=== PATIENT | male | born 1945 | race Caucasian/White ===

== ENCOUNTER 2017-02-25 19:02 | Inpatient (IN) ==
[2017-02-25] MEDS ORDERED: ALBUTEROL/IPRATROPIUM 3 ML NEB RESP TX STA (19:26)
[2017-02-25] MEDS ORDERED: methylPREDNISolone SOD SUC 125 MG/2 ML VIAL IV STA (19:26)
[2017-02-25] MEDS ORDERED: FUROSEMIDE 100 MG/10 ML VIAL IV STA (19:26)
--- NOTE | 2017-02-25 19:31 | Emergency Department Note ---
Arrival - Arrival Chief Complaint: Shortness of Breath Stated Complaint: chf, sob, O2 sats low 80's ED Nursing Triage Note: C/O Shortness of breath. Onset 1300 today. Pt reports that he has swelling to exts. Pt reports that the SOB is worse when laying down or with exertion. Pt is here visiting Mode of Arrival: Wheelchair Limitations: No Limitations Source: Patient, Family Time Seen by Provider: 02/25/17 19:25 - History of Present Illness HPI Narrative: This 71-year-old white male with a history of congestive heart failure, atrial fibrillation, and COPD presents with several days of progressive dyspnea on exertion and orthopnea associated with wheezing and increased rapid heartbeat. The patient had a significant increase in shortness of breath today with a marked increase in pedal edema in the last 24 hours. He denies any chest pain, nausea, vomiting, cough, chills, fever, or purulence. He is followed where he lives in [place] at [facility] for his cardiology problems. He states he is scheduled for a procedure for his atrial fib although he is in sinus now and is compliant with his sotalol and Coreg. He likewise states he has been taking his Lasix as advised. Currently he is uncomfortable but medically stable. Onset (ago): day(s) (Patient presents with several days of increased symptoms) Allergies/Adverse Reactions: Allergies Allergy/AdvReac Type Severity Reaction Status Date / Time acetaminophen [From Tylox] Allergy Intermediate ITCHING Verified 02/25/17 19:14 indomethacin [From Indocin] Allergy Intermediate ITCHING Verified 02/25/17 19:14 ketorolac [From Toradol] Allergy Intermediate ITCHING Verified 02/25/17 19:14 Oxycodone [From Tylox] Allergy Intermediate ITCHING Verified 02/25/17 19:14 Home Medications: Home Medications Medication Instructions Recorded Confirmed Type Aspirin [Ecotrin] 81 mg PO DAILY 02/25/17 02/25/17 History Atorvastatin Calcium 40 mg PO BEDTIME 02/25/17 02/25/17 History Carvedilol 25 mg PO BID 02/25/17 02/25/17 History Clopidogrel Bisulfate [Clopidogrel] 75 mg PO DAILY 02/25/17 02/25/17 History Diazepam Tab [Valium Tab] 5 mg PO DAILY PRN 02/25/17 02/25/17 History Diltiazem Tab [Cardizem Tab] 60 mg PO DAILY PRN 02/25/17 02/25/17 History Furosemide Tab [Lasix Tab] 40 mg PO DAILY PRN 02/25/17 02/25/17 History Lisinopril 10 mg PO DAILY 02/25/17 02/25/17 History Magnesium Oxide 400 mg PO DAILY 02/25/17 02/25/17 History Nitroglycerin [Nitromist] 1 spray TRANSLING Q5M PRN 02/25/17 02/25/17 History Omeprazole 40 mg PO DAILY 02/25/17 02/25/17 History Potassium Chloride [Klor-Con M10] 10 meq PO DAILY 02/25/17 02/25/17 History Rivaroxaban [Xarelto] 20 mg PO DAILY 02/25/17 02/25/17 History Sotalol HCl [Sotalol AF] 120 mg PO BID 02/25/17 02/25/17 History Review of System - Review of System 12 point system: reviewed and no additional remarkable complaints except as stated - Review of System Constitutional: Present: as per HPI Respiratory: Present: as per HPI Cardiovascular: Present: as per HPI Gastrointestinal: Present: as per HPI Medical,Surgical,& Family Hx - Medical History Cardio: History of: Cardiac Dysrhythmia (AFib), CHF - Social History Smoking Status: Current every day smoker Frequency of Alcohol Use: None Type of Drug Use: None Exam Physical Examination: GENERAL: Chronically ill-appearing pale white male in no acute distress. HEENT: Normocephalic. No trauma. Moist mucous membranes. EOMI. PERRLA. ENT NML NECK: Supple. No adenopathy. No JVD CARDIAC: Regular. No murmurs. Heart rate 120 CHEST: Bibasilar inspiratory rales, scattered expiratory anterior wheezes. No respiratory distress. O2 sat 95% ABDOMEN: Soft. Nontender. Active bowel sounds. Abdomen benign EXTREMITIES: No trauma. Normal ROM. 2+ pedal edema. SKIN: No diaphoresis. No rash. NEURO: Alert. Neuro intact no focal deficits. Vital Signs: Vital Signs Temperature 98.4 F 02/25/17 19:14 Pulse Rate 125 H 02/25/17 20:02 Respiratory Rate 22 02/25/17 20:02 Blood Pressure 113/78 02/25/17 19:14 O2 Sat by Pulse Oximetry 100 02/25/17 20:02 Course - Reevaluation(s) Reevaluation #1: Discussed with family the need for hospitalization for cardiac decompensation and intermittent atrial fib - Consultations Consultation #1: Discussed with hospitalist service who will admit for further evaluation treatment. Results - Labs CBC & BMP: 02/25/17 19:42 02/25/17 19:42 Labs: I have reviewed the laboratory and noted the greatly elevated BMP as well as early azotemia. - Impressions EKG: Sinus tachycardia with normal DE interval and QRS duration with nonspecific ST changes laterally. No acute injury pattern noted. - Diagnostic Findings Procedure: Chest x-ray: image reviewed by me, report reviewed by me (Interval increase in cardiac silhouette, evidence of median sternotomy, no acute changes) Disposition Clinical Impression: Congestive heart failure, Atrial fibrillation Case discussed with: patient, patient's family Disposition: Still a Patient Condition: Guarded Time of Disposition: 20:45
[2017-02-25] MEDS ORDERED: methylPREDNISolone SOD SUC 125 MG/2 ML VIAL ONE (19:52)
[2017-02-25] MEDS ORDERED: FUROSEMIDE 100 MG/10 ML VIAL ONE (19:52)
[2017-02-25 19:59] LABS: Basophils # 0.1 10*3/uL (0.0-0.2); Basophils % 0.6 % (0.0-0.8); Eosinophils # 0.1 10*3/uL (0.0-0.87); Eosinophils % 0.8 % (0.00-10.9); Hematocrit 39.6 VOL% (42.0-52.0); Immature Granulocytes % 0.4 %; Immature Granulocytes Absolute 0.05 #; Lymphocytes # 1.2 10*3/uL (1.4-4.0); Lymphocytes % 10.8 % (21.2-54.2); Mean Corpuscular HGB Conc 32.8 GM/DL (32-36); Mean Corpuscular Hemoglobin 29 PG (27-34); Mean Platelet Volume 12.2 FL (9.6-12.0); Monocytes # 0.8 10*3/uL (0.11-0.8); Monocytes % 7.1 % (1.7-12.7); Neutrophils # 9.2 10*3/uL (1.4-7.4); Neutrophils % 80.3 % (38.7-73.9); Platelet Count 230 T/CUMM (130-400); Red Blood Count 4.55 MC/CUMM (3.8-5.5); Red Cell Distribution Width 16.9 % (9.3-17.3); White Blood Count 11.4 T/CUMM (4-12)
[2017-02-25 20:11] LABS: INR 1.4; PT Patient Result 15.3 SECS; Partial Thromboplastin Time 36.4 SECS (0-40)
[2017-02-25 20:11] LABS: Apearance,Urine CLEAR (Clear); Bacteria,Urine Occasional /HPF (Few); Bilirubin,Urine Negative (Negative); Blood, Urine Negative (Negative); Glucose,Urine (UA) Negative (Negative); Hyaline Casts,Urine 7 /LPF (0-3); Ketones,Urine Negative (Negative); Mucus,Urine Occasional /LPF (Occasional); Nitrite,Urine Negative (Negative); Protein,Urine 100 MG/DL; RBC,Urine 1 /HPF (0-4); Urine Color Yellow (Yellow); Urine Specific Gravity 1.023 (1.001-1.035); Urine Urobilinogen < 2.0 EU/DL (0.2-1.0); WBC,Urine 2 /HPF (0-6)
--- NOTE | 2017-02-25 20:11 | XRay Report ---
Portable chest. Indication: Shortness of breath. Comparison: March 01, 2011. The heart is enlarged. It was previously normal in size. Cardiac hardware is in satisfactory position. Post median sternotomy. Calcific plaque present within the aortic knob. The pulmonary vasculature is normal. No consolidation, pneumothorax, or pleural effusion. Hypoaeration of the lung bases. Impression: Interval increase in heart size. Basilar hypoaeration. PROCEDURE INTERPRETED AT [facility] DEPARTMENT OF RADIOLOGY Final Report Signed by: Dr. Brielle Barroso
[2017-02-25 20:18] LABS: Barbiturates Screen,Urine Negative (Negative); Benzodiazepines Screen,Urine Positive (Negative); Cannabinoid Screen,Urine Negative (Negative); Opiate Screen,Urine Negative (Negative); Phencyclidine Screen,Urine Negative (Negative)
[2017-02-25 20:35] LABS: Alanine Aminotransferase 31 U/L (16-61); Albumin 3.4 G/DL (3.4-5.0); Alkaline Phosphatase 89 U/L (45-117); Aspartate Amino Transferase 25 U/L (0-37); Blood Urea Nitrogen 27 MG/DL (7-18); Calcium 8.4 MG/DL (8.5-10.1); Glucose 99 MG/DL (74-106); Osmolality,Calculated 285.3 MOS/KG (273-304); Potassium 3.8 MMOL/L (3.5-5.1); Sodium 141 MMOL/L (136-145); Total Protein 6.2 G/DL (6.4-8.3); Troponin I Only 0.026 NG/ML (0.00-0.045)
[2017-02-25] MEDS ORDERED: NITROGLYCERIN TRANSLING PRN (20:51)
[2017-02-25] MEDS ORDERED: DIAZEPAM 5 MG TABLET PO PRN (20:51)
[2017-02-25] MEDS ORDERED: DILTIAZEM 60 MG TABLET PO PRN (20:51)
[2017-02-25] MEDS ORDERED: PROMETHAZINE 25 MG/1 ML VIAL IM PRN (20:54)
[2017-02-25] MEDS ORDERED: MAGNESIUM SULF RIDER 4 GM in PREMIX 1 EACH IV PRN (20:54)
[2017-02-25] MEDS ORDERED: MAGNESIUM SULF RIDER 2 GM in PREMIX 1 EACH IV PRN (20:54)
[2017-02-25] MEDS ORDERED: ONDANSETRON 4 MG/2 ML VIAL IV PRN (20:54)
[2017-02-25] MEDS ORDERED: BISACODYL 5 MG TABLET PO PRN (20:54)
[2017-02-25] MEDS ORDERED: POTASSIUM CHLORIDE 20 MEQ TABLET PO PRN (20:54)
--- NOTE | 2017-02-25 20:59 | Hospitalist History & Physical ---
Assessment and Plan - Time spent with patient Time spent discussing smoking cessation with patient: 3 to 10 minutes (1) Acute on chronic systolic CHF (congestive heart failure) Status: Acute Current Visit: Yes (2) Atrial fibrillation with RVR Status: Acute Current Visit: Yes (3) AICD (automatic cardioverter/defibrillator) present Status: Acute Current Visit: Yes (4) Hx of CABG Status: Acute Current Visit: Yes (5) CKD (chronic kidney disease) stage 3, GFR 30-59 ml/min Status: Acute Assessment and plan: Plan: Admit to telemetry, serial cardiac enzymes, adjust beta jazlyn/calcium channel jazlyn for rate control Continue remainder of CHF medical regimen IV diuresis, strict I's and O's, daily weights Current Visit: Yes History of Present Illness Chief complaint: sob worsening over 1 week History of present illness: Mr. Nelson is a 71 year old male who is followed by Dr. Kilgore in [facility] for chronic atrial fibrillation, chronic systolic CHF with reported last EF of 25%. He thinks he had an echo maybe 3 weeks ago. He has an AICD and is on chronic anticoagulation. He is here tonight with approximately 1 week of worsening shortness of breath and peripheral edema. He has had cough productive of white phlegm. His feet and ankles are significantly more swollen than usual. He denies fever, chest pain, nausea vomiting or diarrhea. He states he thinks he was started on diltiazem about 2 weeks ago and since then he has felt "sluggish." No other medication changes. He is in town visiting friends/family. Around 130 today he began feeling much weaker and more short of breath prompting him to come to the emergency room. His symptoms are now constant and worsening. Home Medications Medication Instructions Recorded Confirmed Type Aspirin [Ecotrin] 81 mg PO DAILY 02/25/17 02/25/17 History Atorvastatin Calcium 40 mg PO BEDTIME 02/25/17 02/25/17 History Carvedilol 25 mg PO BID 02/25/17 02/25/17 History Clopidogrel Bisulfate [Clopidogrel] 75 mg PO DAILY 02/25/17 02/25/17 History Diazepam Tab [Valium Tab] 5 mg PO DAILY PRN 02/25/17 02/25/17 History Diltiazem Tab [Cardizem Tab] 60 mg PO DAILY PRN 02/25/17 02/25/17 History Furosemide Tab [Lasix Tab] 40 mg PO DAILY PRN 02/25/17 02/25/17 History Lisinopril 10 mg PO DAILY 02/25/17 02/25/17 History Magnesium Oxide 400 mg PO DAILY 02/25/17 02/25/17 History Nitroglycerin [Nitromist] 1 spray TRANSLING Q5M PRN 02/25/17 02/25/17 History Omeprazole 40 mg PO DAILY 02/25/17 02/25/17 History Potassium Chloride [Klor-Con M10] 10 meq PO DAILY 02/25/17 02/25/17 History Rivaroxaban [Xarelto] 20 mg PO DAILY 02/25/17 02/25/17 History Sotalol HCl [Sotalol AF] 120 mg PO BID 02/25/17 02/25/17 History Allergies Allergy/AdvReac Type Severity Reaction Status Date / Time acetaminophen [From Tylox] Allergy Intermediate ITCHING Verified 02/25/17 19:14 indomethacin [From Indocin] Allergy Intermediate ITCHING Verified 02/25/17 19:14 ketorolac [From Toradol] Allergy Intermediate ITCHING Verified 02/25/17 19:14 Oxycodone [From Tylox] Allergy Intermediate ITCHING Verified 02/25/17 19:14 Medical,Surgical,& Family Hx - Medical History Cardio: History of: Cardiac Dysrhythmia (AFib), CHF, CAD, Pacemaker (AICD) Endocrine: No history of: Diabetes Mellitus (NIDDM) Gastrointestinal: History of: GERD - Surgical History Cardiac Surgeries: Sugical HX of: Cardiac Surgery, Internal Defibrillator - Family History Family History: Reports;: Family Hypertension - Social History Smoking Status: Current every day smoker Have you smoked in the last 12 months: Yes Time spent discussing smoking cessation with patient: 3 to 10 minutes Frequency of Alcohol Use: None Type of Drug Use: None Marital Status: Unknown Functional capacity: independent ambulation Review of systems: A 12 point review of systems is negative except as specified in the HPI Exam - Constitutional Vitals: Period Temp Pulse Resp BP Sys/Garcia Pulse Ox Last 24 Hr 98.4 F 124-125 20-28 113/78 95-100 Exam: EXAM: CONSTITUTIONAL: non toxic, NAD HEENT: NC, AT, OP benign, CHENCHO, EOMI CV: Tachycardic, irregular no m/g/r, device pocket benign RESP: clear B/L, no w/r/r GI: abd soft, NT, ND, +bowel sounds INTEGUMENTARY: no lesions or rash EXTREMITIES: 2+ pitting edema of bilateral lower extremities NEURO: no focal deficits PSYCH: unremarkable, A/O x3 Results - Labs CBC & BMP: 02/25/17 19:42 02/25/17 19:42 Lab Results: I have reviewed the past 24 hour labs - EKG EKG shows: tachycardia - Diagnostic Findings Procedure: Chest x-ray: image reviewed by me, report reviewed by me Quality Measures - VTE Contraindication to Pharmacological VTE Prophylaxis: Already on Theraputic Agent , No Prophylaxis Needed
[2017-02-25] MEDS: SOTALOL 80 MG TABLET PO SCH (23:37)
[2017-02-25] MEDS: ATORVASTATIN 40 MG TABLET PO SCH (23:38)
[2017-02-25] MEDS: CARVEDILOL 25 MG TABLET PO SCH (23:38)
[2017-02-26 05:50] LABS: Basophils % 0.2 % (0.0-0.8); Hematocrit 40.1 VOL% (42.0-52.0); Hemoglobin 13.2 GM/DL (14.0-18.0); Immature Granulocytes % 0.5 %; Immature Granulocytes Absolute 0.04 #; Lymphocytes # 0.4 10*3/uL (1.4-4.0); Lymphocytes % 4.7 % (21.2-54.2); Mean Corpuscular HGB Conc 32.9 GM/DL (32-36); Mean Corpuscular Hemoglobin 29 PG (27-34); Mean Corpuscular Volume 87.2 FL (87-102); Mean Platelet Volume 12.3 FL (9.6-12.0); Monocytes # 0.1 10*3/uL (0.11-0.8); Monocytes % 1.2 % (1.7-12.7); Neutrophils # 8.2 10*3/uL (1.4-7.4); Neutrophils % 93.4 % (38.7-73.9); Platelet Count 211 T/CUMM (130-400); Red Cell Distribution Width 16.6 % (9.3-17.3); White Blood Count 8.8 T/CUMM (4-12)
[2017-02-26 06:15] LABS: Free T4 (Free Thyroxine) 1.07 NG/DL (0.76-1.46); Troponin I Only 0.024 NG/ML (0.00-0.045)
[2017-02-26 06:32] LABS: Albumin 3.2 G/DL (3.4-5.0); Bilirubin,Total 1.3 MG/DL (0.2-1.0); Calcium 8.6 MG/DL (8.5-10.1); Magnesium 1.3 MG/DL (1.8-2.4); Potassium 3.7 MMOL/L (3.5-5.1); Thyroid Stimulating Hormone 0.514 uIU/ml (0.358-3.74); Total Protein 6.1 G/DL (6.4-8.3)
[2017-02-26 07:07] LABS: Eosinophils 1 % (0-10); Lymphocytes 3 % (20-55); Segmented Neutrophils 94 % (50-85); Total Cells Counted 100
[2017-02-26 07:08] LABS: Hypochromasia 1+; Microcytosis 1+; Platelet Estimate Normal
--- NOTE | 2017-02-26 07:51 | EKG Report ---
Stationary ECG Study [facility] Test Date: 02/26/2017 7:50:59 AM Pat Name: JE SALAMANCA Department: Room: 288 Gender: M Customer Care Associate: : 1945 Requested by: Espinoza Dasilva Order Number: [id number] Reading MD: ARSLAN DUNN Intervals [place] Rate: 122 P: 999 OR: 0 QRS: 55 QRSD: 100 T: 200 QT: 362 QTc: 435 Interpretive Statements SUPRAVENTRICULAR TACHYCARDIA Electronically Signed On 02-26-17 10:21:28 CDT by ARSLAN DUNN [email or web address]
--- NOTE | 2017-02-26 08:18 | EKG Report ---
Stationary ECG Study [facility] Test Date: 02/25/2017 7:12:19 PM Pat Name: JE SALAMANCA Department: Room: 288 Gender: M Manager Regional: : 1945 Requested by: Richard Church Order Number: [id number] Reading MD: ARSLAN DUNN Intervals [place] Rate: 124 P: 82 VA: 118 QRS: 41 QRSD: 123 T: 198 QT: 324 QTc: 398 Interpretive Statements SINUS TACHYCARDIA WITH SHORT VA INTERVAL INDETERMINATE AXIS NONDIAGNOSTIC ST-T ABNORMALITIES Electronically Signed On 02-26-17 09:56:55 CDT by ARSLAN DUNN [email or web address]
[2017-02-26] MEDS: FUROSEMIDE 40 MG/4 ML VIAL IV SCH ×2 (08:42→16:48)
[2017-02-26] MEDS: CLOPIDOGREL 75 MG TABLET PO SCH (08:43)
[2017-02-26] MEDS: LISINOPRIL 10 MG TABLET PO SCH (08:43)
[2017-02-26] MEDS: RIVAROXABAN 20 MG TABLET PO SCH (08:43)
[2017-02-26] MEDS: MAGNESIUM OXIDE 400 MG TABLET PO SCH (08:43)
[2017-02-26] MEDS: POTASSIUM CHLORIDE 10 MEQ TABLET PO SCH (08:44)
[2017-02-26] MEDS: CARVEDILOL 25 MG TABLET PO SCH ×2 (08:44→20:57)
[2017-02-26] MEDS: SOTALOL 80 MG TABLET PO SCH ×2 (08:44→20:56)
[2017-02-26] MEDS: ASPIRIN EC 81 MG TABLET PO SCH (08:44)
[2017-02-26] MEDS: PANTOPRAZOLE 40 MG TABLET PO SCH (08:44)
--- NOTE | 2017-02-26 10:20 | Hospitalist Progress Note ---
Assessment and Plan (1) Acute on chronic systolic CHF (congestive heart failure) Status: Acute Assessment and plan: We will continue IV diuresis; renal function is slightly elevated BUN is noted at 28 creatinine at 120 0 up from 27 and 1.60 at the time of admission. We will obtain echocardiogram to assess current heart function. Upon review of the medical record, the patient has not had a previous admission here at [facility]. Due to the complexity of the patient's cardiac history, we will consult cardiology to evaluate and assist during the clinical encounter. Current Visit: Yes (2) Atrial fibrillation with RVR Status: Acute Current Visit: Yes (3) CKD (chronic kidney disease) stage 3, GFR 30-59 ml/min Status: Acute Assessment and plan: BUN and creatinine noted at 28 and 1.80 this morning up from 2070.60 on yesterday. We will monitor the patient's renal function closely. We are not sure of what the patient's actual baseline is. We will gently diurese and monitor renal function closely. Current Visit: Yes Hospitalist: Subjective Interval history: Patient seen and examined; no significant overnight events. Noted elevation in BNP; BNP noted at 1905 up from 1519 at the time of admission. Exam - Constitutional Vitals: Period Temp Pulse Resp BP Sys/Garcia Pulse Ox Last 24 Hr 96.6 F-98.4 F 119-125 16-28 90-113/57-78 93-100 General appearance: normal weight, no acute distress - Head Head exam: Present: normal inspection, atraumatic - Eye Eye exam: Present: EOMI. Absent: conjunctival injection Pupils: Present: CHENCHO, normal accommodation - ENT ENT exam: Present: normal exam, normal external ear exam, normal oropharynx - Neck Neck exam: Present: normal inspection. Absent: lymphadenopathy, meningismus, tenderness, thyromegaly - Respiratory Respiratory exam: Present: clear to auscultation bilaterally. Absent: rales, rhonchi, stridor - Cardiovascular Cardiovascular exam: Present: regular rate and rhythm. Absent: carotid bruit, diastolic murmur, gallop, JVD, rubs, systolic murmur - GI/Abdominal GI/Abdominal exam: Present: normal bowel sounds, soft - Extremities Exam Extremities exam: Present: edema (+2 edema noted bilaterally) - Back Exam Back exam: Present: normal inspection - Neurological Exam Neurological exam: Present: alert, oriented X3, CN II-XII intact - Psychiatric Psychiatric exam: Present: normal affect, normal mood - Skin Skin exam: Present: normal color, warm, dry Results - Labs CBC & BMP: 02/26/17 05:03 02/26/17 05:03 Lab Results: I have reviewed the past 24 hour labs Quality Measures - VTE Contraindication to Pharmacological VTE Prophylaxis: Already on Theraputic Agent , No Prophylaxis Needed
--- NOTE | 2017-02-26 12:31 | ECHO Report ---
Darell Nelson Exam Date: 02/26/2017 09:00 Referring Physician: Technologist: celso ZhongS, RVT Age: 71 Ht (in): 69 Wt (lb): 192 Gender: M Exam Location: [facility] Echo Indications: Presence of automatic (implantable) cardiac defibrillator, Atrial fibrillation, Chronic kidney disease, unspecified, Hx: CABG, Acute on chronic CHF BP: 108 / 68 HR: 123 Rhythm: Other Technical Quality: Fair IMPRESSIONS Normal left ventricular size, with diffuse severe LV hypo EF in the 15- 20% range. Mildly increased right ventricular size. Preserved RV systolic function. The right atrium is mildly enlarged. Moderately increased left atrial size. Mildly thickened mitral valve. Mild-moderate mitral valve regurgitation. Morphologically normal aortic valve without significant sclerosis or stenosis. There is no aortic regurgitation. Morphologically normal tricuspid valve. Gxel-ob-gafvaokl tricuspid valve regurgitation. Morphologically normal pulmonic valve. Mild pulmonary valve regurgitation. Normal pericardium without effusion. Normal ascending aorta dimension. MEASUREMENTS (Male / Female) Normal Values 2D ECHO LV Diastolic Diameter PLAX 5.1 cm 4.2 - 5.9 / 3.9 - 5.3 cm LV Systolic Diameter PLAX 3.9 cm LV Fractional Shortening PLAX 23.3 % IVS Diastolic Thickness 1.7 cm 0.6 - 1.0 / 0.6 - 0.9 cm LVPW Diastolic Thickness 1.6 cm 0.6 - 1.0 / 0.6 - 0.9 cm RV Internal Dim ED PLAX 4.2 cm Aortic Root Diameter 3.8 cm LA Systolic Diameter LX 5.5 cm 3.0 - 4.0 / 2.7 - 3.8 cm DOPPLER TR Peak Velocity 301.0 cm/s TR Peak Gradient 36.2 mmHg FINDINGS Left Ventricle Normal left ventricular size, with diffuse severe LV hypo EF in the 15- 20% range. Right Ventricle Mildly increased right ventricular size. Preserved RV systolic function Right Atrium The right atrium is mildly enlarged. Left Atrium Moderately increased left atrial size. Mitral Valve Mildly thickened mitral valve. Mild-moderate mitral valve regurgitation. Aortic Valve Morphologically normal aortic valve without significant sclerosis or stenosis. There is no aortic regurgitation. Tricuspid Valve Morphologically normal tricuspid valve. [id number] tricuspid valve regurgitation. Pulmonic Valve Morphologically normal pulmonic valve. Mild pulmonary valve regurgitation. Pericardium Normal pericardium without effusion. Aorta Normal ascending aorta dimension. Cristian Ascencio MD (Electronically Signed) Final Date: 26 February 2017 11:58
[2017-02-26] MEDS ORDERED: SODIUM CHLORIDE 0.9% 250 ML IV ONE (20:47)
[2017-02-26] MEDS: ATORVASTATIN 40 MG TABLET PO SCH (20:56)
[2017-02-27 08:14] LABS: Basophils % 0.2 % (0.0-0.8); Eosinophils % 0.2 % (0.00-10.9); Hematocrit 36.5 VOL% (42.0-52.0); Immature Granulocytes % 0.5 %; Immature Granulocytes Absolute 0.06 #; Lymphocytes % 7.5 % (21.2-54.2); Mean Corpuscular HGB Conc 32.9 GM/DL (32-36); Mean Corpuscular Hemoglobin 29 PG (27-34); Mean Platelet Volume 12.6 FL (9.6-12.0); Monocytes # 0.6 10*3/uL (0.11-0.8); Monocytes % 4.8 % (1.7-12.7); Neutrophils # 11.5 10*3/uL (1.4-7.4); Neutrophils % 86.8 % (38.7-73.9); Platelet Count 200 T/CUMM (130-400); Red Blood Count 4.15 MC/CUMM (3.8-5.5); Red Cell Distribution Width 16.8 % (9.3-17.3); White Blood Count 13.3 T/CUMM (4-12)
[2017-02-27 08:28] LABS: Bilirubin,Total 0.4 MG/DL (0.2-1.0); Calcium 8.3 MG/DL (8.5-10.1); Magnesium 2.8 MG/DL (1.8-2.4); Osmolality,Calculated 288.5 MOS/KG (273-304); Phosphorous 4.5 MG/DL (2.5-4.9); Potassium 3.9 MMOL/L (3.5-5.1); Total Protein 5.4 G/DL (6.4-8.3)
--- NOTE | 2017-02-27 10:50 | Hospitalist Progress Note ---
Assessment and Plan (1) Acute on chronic systolic CHF (congestive heart failure) Status: Acute Assessment and plan: We will continue IV diuresis; renal function is slightly elevated BUN is noted at 28 creatinine at 120 0 up from 27 and 1.60 at the time of admission. We will obtain echocardiogram to assess current heart function. Upon review of the medical record, the patient has not had a previous admission here at [facility]. Due to the complexity of the patient's cardiac history, we will consult cardiology to evaluate and assist during the clinical [id number]/02/27/2017-renal function is worsening. BUN noted at 42 creatinine at 1.90 this is a noted increase from 28 and 1.2 on yesterday. We will stop the Lasix IV; we will convert Lasix to p.o. Reassess in a.m. The patient was also noted to have profound hypotension on last night which required multiple fluid boluses. The patient is on multiple antihypertensive agents. We will review; we may consider reducing the dose of the Coreg. The patient reports that he was placed on Premarin during this clinical encounter and that he normally does not take Coreg. Current Visit: Yes (2) Atrial fibrillation with RVR Status: Acute Current Visit: Yes (3) CKD (chronic kidney disease) stage 3, GFR 30-59 ml/min Status: Acute Assessment and plan: BUN and creatinine noted at 28 and 1.80 this morning up from 2070.60 on yesterday. We will monitor the patient's renal function closely. We are not sure of what the patient's actual baseline is. We will gently diurese and monitor renal function closely. 02/27-BUN and creatinine noted at 42 and 1.90 markedly increased from yesterday which it was noted at 28 and 1.0. We will discontinue the IV Lasix changed to p.o. Recheck labs in a.m. Current Visit: Yes Hospitalist: Subjective Interval history: Patient seen and examined; chart review. Persistent hypotension reported per nursing staff; systolic blood pressure was noted at less than 90. The patient was given fluid boluses on last night response. Patient blood pressure mildly responded was noted in the low 100s after fluid boluses. Exam - Constitutional Vitals: Period Temp Pulse Resp BP Sys/Garcia Pulse Ox Last 24 Hr 96.7 F-97.5 F 62-120 17-22 78-108/44-73 90-99 General appearance: normal weight, no acute distress - Head Head exam: Present: normal inspection, normocephalic - Eye Eye exam: Present: EOMI, conjunctival injection Pupils: Present: CHENCHO, normal accommodation - ENT ENT exam: Present: normal exam, normal external ear exam, normal oropharynx - Neck Neck exam: Present: normal inspection. Absent: lymphadenopathy, meningismus, thyromegaly - Respiratory Respiratory exam: Present: clear to auscultation bilaterally. Absent: rales, rhonchi, stridor, wheezes - Cardiovascular Cardiovascular exam: Present: regular rate and rhythm. Absent: carotid bruit, diastolic murmur, gallop, JVD, rubs, systolic murmur - GI/Abdominal GI/Abdominal exam: Present: normal bowel sounds, soft - Extremities Exam Extremities exam: Present: normal inspection, normal capillary refill, full ROM. Absent: edema - Back Exam Back exam: Present: normal inspection - Neurological Exam Neurological exam: Present: alert, oriented X3, CN II-XII intact - Psychiatric Psychiatric exam: Present: normal affect, normal mood - Skin Skin exam: Present: normal color, warm, dry Results - Labs CBC & BMP: 02/27/17 06:46 02/27/17 06:46 Lab Results: I have reviewed the past 24 hour labs Quality Measures - VTE Contraindication to Pharmacological VTE Prophylaxis: Already on Theraputic Agent , No Prophylaxis Needed
[2017-02-27] MEDS: FUROSEMIDE 40 MG/4 ML VIAL IV SCH (11:11)
[2017-02-27] MEDS: MAGNESIUM OXIDE 400 MG TABLET PO SCH (11:11)
[2017-02-27] MEDS: CARVEDILOL 25 MG TABLET PO SCH (11:12)
[2017-02-27] MEDS: SOTALOL 80 MG TABLET PO SCH (11:42)
[2017-02-27] MEDS: LISINOPRIL 10 MG TABLET PO SCH (11:42)
[2017-02-27] MEDS: POTASSIUM CHLORIDE 10 MEQ TABLET PO SCH (11:43)
[2017-02-27] MEDS: RIVAROXABAN 20 MG TABLET PO SCH (11:43)
[2017-02-27] MEDS: CLOPIDOGREL 75 MG TABLET PO SCH (11:43)
[2017-02-27] MEDS: PANTOPRAZOLE 40 MG TABLET PO SCH (11:43)
[2017-02-27] MEDS: ASPIRIN EC 81 MG TABLET PO SCH (11:43)
[2017-02-27 12:20] VITALS: BP 90/45
--- NOTE | 2017-02-27 13:34 | Discharge Summary ---
<Rae Birminghamda - Last Filed: 02/27/17 13:14> Hospital Course - Hospital Course Hospital Course: This is a chronically ill 71-year-old male that presented to the ED at [facility] on February 25, 2017 for the evaluation of shortness of breath and lower extremity edema. Patient has a very complex medical history significant for: Congestive heart failure, atrial fibrillation, chronic obstructive pulmonary disease, and nicotine addiction. Patient has a surgical history significant for automatic cardioverter and defibrillator placement. The patient reported the onset of symptoms 24 hours before presentation. He reports that he has dyspnea and orthopnea progressively worsened over the last 24 hours. In addition, he reports increase in pedal edema and increased heart rate. At the time of ED assessment, the patient denied chest pain, nausea, vomiting, cough, chills, or fever. The patient reports that he is followed at the [facility] cardiology department for the management of his congestive heart failure and chronic anticoagulation. He was here visiting relatives when the onset of symptoms occurred. He became alarmed and presented to the ED for further evaluation. The patient was assessed at the time of ED presentation. At the time of triage , the patient was noted to have oxygen saturations at 80% and tachycardic with heart rates noted at 125. Cardiac enzymes were obtained troponin was noted at 0.026. Chest x-ray suggested interval increase in heart size and basilar hypoaeration. The patient was subsequently admitted to the hospitalist services for continuation of care. Intravenous diuretic agents were initiated. The patient's home medications were reviewed and reconciled. The patient's respiratory status and lower extremity edema gradually improved. The patient's heart rate has remained stable and has not experienced any additional cardiac abnormalities. The patient's condition is stable. He has not experienced any significant overnight events. Today, we feel that he is indeed appropriate for discharge to follow-up with his primary care physician and media production support manager as directed. Upon review of the patient's medications, on Sunday, the patient's Coreg was increased to 25 mg by mouth twice daily. The patient's Coreg will be decreased to 12.5 mg by mouth twice daily to start at the time of discharge. Diagnosis - Discharge Diagnosis (1) Acute on chronic systolic CHF (congestive heart failure) Status: Acute (2) Atrial fibrillation with RVR Status: Acute (3) CKD (chronic kidney disease) stage 3, GFR 30-59 ml/min Status: Acute Discharge Plan - Discharge Data Disposition: Disch To Home/Self Care - Discharge Medications New Carvedilol [Coreg] 12.5 mg PO BID #60 tablet Continue Sotalol HCl [Sotalol AF] 120 mg PO BID Omeprazole 40 mg PO DAILY Diazepam Tab [Valium Tab] 5 mg PO DAILY PRN PRN Reason: NERVE Lisinopril 10 mg PO DAILY Potassium Chloride [Klor-Con M10] 10 meq PO DAILY Furosemide Tab [Lasix Tab] 40 mg PO DAILY PRN PRN Reason: FLUID Clopidogrel Bisulfate [Clopidogrel] 75 mg PO DAILY Atorvastatin Calcium 40 mg PO BEDTIME Aspirin [Ecotrin] 81 mg PO DAILY Nitroglycerin [Nitromist] 1 spray TRANSLING Q5M PRN PRN Reason: Chest Pain Rivaroxaban [Xarelto] 20 mg PO DAILY Magnesium Oxide 400 mg PO DAILY Diltiazem Tab [Cardizem Tab] 60 mg PO DAILY PRN PRN Reason: Palpitations Discontinued Carvedilol 25 mg PO BID - Follow Up or Referral - Forms/Instructions Exam - Constitutional Vitals: Period Temp Pulse Resp BP Sys/Garcia Pulse Ox Last 24 Hr 96.9 F-97.5 F 62-112 17-22 78-108/44-62 90-99 Discharge Results Procedures and tests throughout hospitalization: Pending Orders 02/25/17 19:56 Blood Culture Stat Labs on day of discharge: Labs from last 24 hours 02/27/17 02/27/17 02/27/17 06:46 06:46 06:46 WBC 13.3 H D RBC 4.15 Hgb 12.0 L Hct 36.5 L MCV 88.0 MCH 29 MCHC 32.9 RDW 16.8 Plt Count 200 MPV 12.6 H Neut % (Auto) 86.8 H Lymph % (Auto) 7.5 L Sumner % (Auto) 4.8 Eos % (Auto) 0.2 Baso % (Auto) 0.2 Neut # (Auto) 11.5 H Lymph # (Auto) 1.0 L Sumner # (Auto) 0.6 Eos # (Auto) 0.0 Baso # (Auto) 0.0 Immature Gran % 0.5 Nucleated RBC % 0.0 Immature Gran # 0.06 Nucleated RBCs # 0.00 Sodium 139 Potassium 3.9 Chloride 103 Carbon Dioxide 25 Anion Gap 14.9 BUN 42 H Creatinine 1.90 H GFR Calculation 41 BUN/Creatinine Ratio 22.00 H Glucose 111 H Calculated Osmolality 288.5 Calcium 8.3 L Phosphorus 4.5 Magnesium 2.8 H 2.8 H Total Bilirubin 0.40 AST 10 ALT 24 Alkaline Phosphatase 72 Total Protein 5.4 L Albumin 3.0 L Globulin 2.4 Albumin/Globulin Ratio 1.2 Preliminary micro results at discharge 02/25/17 19:56 Blood Culture - Preliminary Blood No growth at 1 day 02/25/17 19:42 Blood Culture - Preliminary Blood No growth at 1 day DS: Provider Date of admission: 02/25/17 20:54 Primary care physician: . No PCP Attending physician on admission: Espinoza Fall DO Discharging clinician: Herson Birmingham CNP <Faith Paula - Last Filed: 02/27/17 14:48> Hospital Course - Time spent with patient Time with patient DS: Greater than 30 minutes (Total discharge time for this patient, including [id number] time, clinical documentation, medication reconciliation, and discharge planning was 37 minutes.) Diagnosis - Discharge Diagnosis (1) Acute on chronic systolic CHF (congestive heart failure) Status: Acute (2) Atrial fibrillation with RVR Status: Acute (3) AICD (automatic cardioverter/defibrillator) present Status: Chronic (4) Hx of CABG Status: Chronic (5) CKD (chronic kidney disease) stage 3, GFR 30-59 ml/min Status: Chronic Discharge Plan - Discharge Data Condition at Discharge: Stable Discharge Diet: advance to your usual diet Activity: resume usual activities as tolerated Hygiene: no restrictions Weight Bearing at Discharge: full weight bearing Contact your physician if you experience:: fever over 101, Shortness of breath - Forms/Instructions Additional Discharge Instructions: Follow-up with her media production support manager at [facility]. Exam - Constitutional Exam: Constitutional System: No distress. No tremulousness. Head: Normocephalic, atraumatic. Ears, Nose and Throat System: No pain or tenderness. No epistaxis or discharge Eyes System: Pupils equal, round, and reactive. Extraocular muscles intact. Neck: Supple, without adenopathy, No jugular venous distention. Respiratory System: Chest clear to auscultation. Cardiovascular System: Heart with regular rate and rhythm. No murmur. GI System: Abdomen soft, nontender. Normo active bowel sounds present. Musculoskeletal System: limbs with minimal bilateral pedal edema. Full distal pulses. Neurological System: No discernable sensory deficit. No aphasia Psychiatric System: Conversation is rational DS: Provider Expected date of discharge: 02/27/17
[2017-02-27] MEDS ORDERED: FUROSEMIDE 40 MG TABLET PO SCH (16:00)
[2017-02-27] MEDS ORDERED: CARVEDILOL 6.25 MG TABLET PO SCH (21:00)
[2017-02-27] MEDS ORDERED: CARVEDILOL 12.5 MG TABLET PO SCH (21:00)
== END 2017-02-27 15:16 | disposition home or self-care (01) | DRG 293 ==
LOC: N.ED 19:02 → SUATTDRO 20:54 → N.EDINP 20:54 → N.TELEN 22:09
PROVIDERS: ADMIT Internal Medicine; ATTEND Family Medicine

== ENCOUNTER 2019-08-12 15:40 | Inpatient (IN) ==
[2019-08-12 16:41] LABS: Basophils % 0.1 % (0.0-0.8); Hematocrit 39.8 VOL% (42.0-52.0); Hemoglobin 12.5 GM/DL (14.0-18.0); Immature Granulocytes % 0.7 %; Immature Granulocytes Absolute 0.12 #; Lymphocytes # 0.4 10*3/uL (1.4-4.0); Lymphocytes % 2.3 % (21.2-54.2); Mean Corpuscular HGB Conc 31.4 GM/DL (32-36); Mean Corpuscular Volume 84.7 FL (87-102); Mean Platelet Volume 12.8 FL (9.6-12.0); Monocytes % 3.6 % (1.7-12.7); Neutrophils % 93.3 % (38.7-73.9); Platelet Count 195 T/CUMM (130-400); White Blood Count 17.6 T/CUMM (4-12)
[2019-08-12 16:57] LABS: Albumin 3.5 G/DL (3.4-5.0); Bilirubin,Total 1.2 MG/DL (0.2-1.0); Osmolality,Calculated 291.1 MOS/KG (273-304); Total Protein 6.8 G/DL (6.4-8.3)
[2019-08-12] MEDS ORDERED: LABETALOL 20 MG/4 ML SYRINGE IV STA (17:29)
[2019-08-12 17:39] LABS: Platelet Estimate Adequate; Segmented Neutrophils 97 % (50-85); Total Cells Counted 100
[2019-08-12] MEDS ORDERED: FUROSEMIDE 40 MG/4 ML VIAL IV STA (17:50)
[2019-08-12] MEDS ORDERED: ONDANSETRON 4 MG/2 ML VIAL ONE (18:17)
[2019-08-12] MEDS ORDERED: ONDANSETRON 4 MG/2 ML VIAL IV STA (18:20)
[2019-08-12] MEDS ORDERED: DOCUSATE SODIUM 100 MG CAPSULE PO PRN (18:42)
[2019-08-12] MEDS ORDERED: LACTULOSE 20 GM/30 ML UDCUP PO PRN (18:42)
[2019-08-12] MEDS ORDERED: NITROGLYCERIN SL 0.4 MG TABLET SL PRN (18:55)
[2019-08-12] MEDS: ALBUTEROL/IPRATROPIUM 3 ML NEB RESP TX SCH (19:58)
[2019-08-12 20:58] LABS: Troponin I 0.032 NG/ML (0.00-0.045)
[2019-08-12] MEDS ORDERED: NORTRIPTYLINE 25 MG CAPSULE PO SCH (21:00)
[2019-08-12] MEDS: APIXABAN 5 MG TABLET PO SCH (21:16)
[2019-08-12] MEDS: CLOTRIMAZOLE/BETAMETHASONE CREAM 15 GM TUBE TOP SCH (21:16)
[2019-08-12] MEDS: ATORVASTATIN 40 MG TABLET PO SCH (21:16)
[2019-08-13] MEDS: ALBUTEROL/IPRATROPIUM 3 ML NEB RESP TX SCH ×4 (00:28→20:26)
[2019-08-13 00:58] LABS: Troponin I 0.027 NG/ML (0.00-0.045)
[2019-08-13] MEDS: FUROSEMIDE 40 MG/4 ML VIAL IV SCH ×2 (05:11→18:12)
[2019-08-13 06:23] LABS: Basophils % 0.2 % (0.0-0.8); Eosinophils % 0.1 % (0.00-10.9); Hematocrit 37.4 VOL% (42.0-52.0); Hemoglobin 11.6 GM/DL (14.0-18.0); Immature Granulocytes % 0.4 %; Immature Granulocytes Absolute 0.05 #; Lymphocytes # 0.8 10*3/uL (1.4-4.0); Lymphocytes % 5.9 % (21.2-54.2); Mean Corpuscular Volume 85.6 FL (87-102); Mean Platelet Volume 12.7 FL (9.6-12.0); Monocytes % 5.8 % (1.7-12.7); Neutrophils % 87.6 % (38.7-73.9); Platelet Count 164 T/CUMM (130-400); Red Blood Count 4.37 MC/CUMM (3.8-5.5); White Blood Count 12.7 T/CUMM (4-12)
[2019-08-13 06:41] LABS: Calcium 8.6 MG/DL (8.5-10.1); Osmolality,Calculated 288.5 MOS/KG (273-304)
[2019-08-13 06:46] LABS: Troponin I 0.042 NG/ML (0.00-0.045)
[2019-08-13] MEDS: MAGNESIUM OXIDE 400 MG TABLET PO SCH (10:37)
[2019-08-13] MEDS: SACUBITRIL/VALSARTAN 49-51 MG TABLET PO SCH (10:37)
[2019-08-13] MEDS: APIXABAN 5 MG TABLET PO SCH ×2 (10:37→20:13)
[2019-08-13] MEDS: CLOPIDOGREL 75 MG TABLET PO SCH (10:37)
[2019-08-13] MEDS: ASPIRIN EC 81 MG TABLET PO SCH (10:37)
[2019-08-13] MEDS: CLOTRIMAZOLE/BETAMETHASONE CREAM 15 GM TUBE TOP SCH ×2 (10:41→20:18)
[2019-08-13] MEDS: LEVOFLOXACIN INJ 500 MG in PREMIX 1 EACH IV SCH (11:05)
[2019-08-13] MEDS ORDERED: carvediloL 12.5 MG TABLET PO SCH (14:00)
[2019-08-13] MEDS ORDERED: NORTRIPTYLINE 75 MG CAPSULE PO SCH (15:43)
[2019-08-13] MEDS: ATORVASTATIN 40 MG TABLET PO SCH (20:13)
[2019-08-13] MEDS: NORTRIPTYLINE 25 MG CAPSULE PO SCH (20:13)
[2019-08-13] MEDS: carvediloL 12.5 MG TABLET PO SCH (20:14)
[2019-08-13] MEDS ORDERED: ONDANSETRON 4 MG/2 ML VIAL IV PRN (23:02)
[2019-08-14] MEDS: ALBUTEROL/IPRATROPIUM 3 ML NEB RESP TX SCH ×3 (01:17→16:58)
[2019-08-14 05:07] LABS: Basophils # 0.1 10*3/uL (0.0-0.2); Basophils % 0.6 % (0.0-0.8); Eosinophils # 0.2 10*3/uL (0.0-0.87); Eosinophils % 2.4 % (0.00-10.9); Hematocrit 38.7 VOL% (42.0-52.0); Immature Granulocytes % 0.5 %; Immature Granulocytes Absolute 0.04 #; Lymphocytes # 1.1 10*3/uL (1.4-4.0); Mean Corpuscular Volume 85.4 FL (87-102); Mean Platelet Volume 12.9 FL (9.6-12.0); Monocytes % 7.5 % (1.7-12.7); Platelet Count 165 T/CUMM (130-400); Red Blood Count 4.53 MC/CUMM (3.8-5.5); Red Cell Distribution Width 16.1 % (9.3-17.3)
[2019-08-14 05:34] LABS: Calcium 8.4 MG/DL (8.5-10.1); Osmolality,Calculated 283.7 MOS/KG (273-304)
[2019-08-14] MEDS: FUROSEMIDE 40 MG/4 ML VIAL IV SCH ×2 (05:35→17:57)
[2019-08-14] MEDS: ASPIRIN EC 81 MG TABLET PO SCH (08:51)
[2019-08-14] MEDS: MAGNESIUM OXIDE 400 MG TABLET PO SCH (08:52)
[2019-08-14] MEDS: CLOPIDOGREL 75 MG TABLET PO SCH (08:52)
[2019-08-14] MEDS: SACUBITRIL/VALSARTAN 49-51 MG TABLET PO SCH (08:52)
[2019-08-14] MEDS: carvediloL 12.5 MG TABLET PO SCH ×3 (08:52→21:42)
[2019-08-14] MEDS: LEVOFLOXACIN INJ 500 MG in PREMIX 1 EACH IV SCH (08:52)
[2019-08-14] MEDS: APIXABAN 5 MG TABLET PO SCH ×2 (08:52→21:42)
[2019-08-14] MEDS: CLOTRIMAZOLE/BETAMETHASONE CREAM 15 GM TUBE TOP SCH ×2 (09:01→21:42)
[2019-08-14] MEDS ORDERED: FUROSEMIDE 40 MG/4 ML VIAL IV SCH (11:17)
[2019-08-14] MEDS ORDERED: MAGNESIUM SULF RIDER 4 GM in PREMIX 1 EACH IV PRN (17:43)
[2019-08-14] MEDS ORDERED: MAGNESIUM SULF RIDER 100 ML IV ONE (17:48)
[2019-08-14] MEDS: MAGNESIUM SULF RIDER 2 GM in PREMIX 1 EACH IV PRN ×2 (17:51→20:30)
[2019-08-14] MEDS: ATORVASTATIN 40 MG TABLET PO SCH (21:41)
[2019-08-14] MEDS: NORTRIPTYLINE 25 MG CAPSULE PO SCH (21:41)
[2019-08-15 05:41] LABS: Basophils # 0.1 10*3/uL (0.0-0.2); Basophils % 0.8 % (0.0-0.8); Eosinophils # 0.3 10*3/uL (0.0-0.87); Hematocrit 41.1 VOL% (42.0-52.0); Immature Granulocytes % 0.4 %; Immature Granulocytes Absolute 0.03 #; Lymphocytes # 1.1 10*3/uL (1.4-4.0); Lymphocytes % 13.5 % (21.2-54.2); Mean Corpuscular HGB Conc 31.6 GM/DL (32-36); Mean Corpuscular Volume 83.2 FL (87-102); Mean Platelet Volume 12.4 FL (9.6-12.0); Monocytes % 7.8 % (1.7-12.7); Neutrophils % 73.5 % (38.7-73.9); Platelet Count 192 T/CUMM (130-400); Red Blood Count 4.94 MC/CUMM (3.8-5.5); Red Cell Distribution Width 15.9 % (9.3-17.3); White Blood Count 8.5 T/CUMM (4-12)
[2019-08-15] MEDS: ALBUTEROL/IPRATROPIUM 3 ML NEB RESP TX SCH ×2 (05:51→07:07)
[2019-08-15 06:18] LABS: Osmolality,Calculated 277.1 MOS/KG (273-304)
[2019-08-15] MEDS: FUROSEMIDE 40 MG/4 ML VIAL IV SCH (06:24)
[2019-08-15] MEDS: APIXABAN 5 MG TABLET PO SCH (08:08)
[2019-08-15] MEDS: SACUBITRIL/VALSARTAN 49-51 MG TABLET PO SCH (08:08)
[2019-08-15] MEDS: NICOTINE 14 MG/24 HR PATCH TRANSDERM SCH ×2 (08:08→08:20)
[2019-08-15] MEDS: carvediloL 12.5 MG TABLET PO SCH ×2 (08:09→08:20)
[2019-08-15] MEDS: LEVOFLOXACIN INJ 500 MG in PREMIX 1 EACH IV SCH (08:09)
[2019-08-15] MEDS: ASPIRIN EC 81 MG TABLET PO SCH (08:09)
[2019-08-15] MEDS: CLOPIDOGREL 75 MG TABLET PO SCH (08:09)
[2019-08-15] MEDS: MAGNESIUM OXIDE 400 MG TABLET PO SCH (08:09)
[2019-08-15] MEDS: CLOTRIMAZOLE/BETAMETHASONE CREAM 15 GM TUBE TOP SCH (08:11)
[2019-08-15] MEDS ORDERED: FUROSEMIDE 80 MG TABLET PO SCH (09:00)
[2019-08-15] MEDS ORDERED: NORTRIPTYLINE 25 MG CAPSULE PO SCH (11:14)
[2019-08-15 12:14] VITALS: BP 91/68
== END 2019-08-15 13:26 | disposition home or self-care (01) | DRG 291 ==
LOC: N.ED 15:40 → N.EDINP 18:41 → N.TELEN 19:46
PROVIDERS: ADMIT Hospitalist; ATTEND Hospitalist

== ENCOUNTER 2019-09-30 01:48 | Inpatient (IN) ==
[2019-09-30] MEDS ORDERED: ALBUTEROL/IPRATROPIUM 3 ML NEB RESP TX STA ×2 (02:17→03:05)
[2019-09-30] MEDS ORDERED: methylPREDNISolone SOD SUC 125 MG/2 ML VIAL IV STA (02:17)
[2019-09-30 02:41] LABS: Basophils # 0.1 10*3/uL (0.0-0.2); Basophils % 1.2 % (0.0-0.8); Eosinophils # 0.1 10*3/uL (0.0-0.87); Eosinophils % 1.2 % (0.00-10.9); Hemoglobin 11.9 GM/DL (14.0-18.0); Immature Granulocytes % 0.5 %; Immature Granulocytes Absolute 0.04 #; Lymphocytes % 11.9 % (21.2-54.2); Mean Corpuscular HGB Conc 30.5 GM/DL (32-36); Mean Corpuscular Volume 85.9 FL (87-102); Monocytes % 7.4 % (1.7-12.7); Neutrophils % 77.8 % (38.7-73.9); Platelet Count 186 T/CUMM (130-400); Red Blood Count 4.54 MC/CUMM (3.8-5.5); Red Cell Distribution Width 17.6 % (9.3-17.3); White Blood Count 8.1 T/CUMM (4-12)
[2019-09-30 03:00] LABS: Albumin 3.1 G/DL (3.4-5.0); Bilirubin,Total 1.4 MG/DL (0.2-1.0); Calcium 8.6 MG/DL (8.5-10.1); Osmolality,Calculated 274.8 MOS/KG (273-304); Total Protein 6.7 G/DL (6.4-8.3)
[2019-09-30] MEDS ORDERED: FUROSEMIDE 100 MG/10 ML VIAL IV STA (03:06)
[2019-09-30] MEDS ORDERED: FUROSEMIDE 40 MG/4 ML VIAL ONE (03:21)
[2019-09-30] MEDS ORDERED: LEVOFLOXACIN INJ 500 MG in PREMIX 1 EACH IV STA (03:39)
[2019-09-30] MEDS ORDERED: MAGNESIUM SULF RIDER 4 GM in PREMIX 1 EACH IV PRN (04:49)
[2019-09-30] MEDS ORDERED: MAGNESIUM SULF RIDER 2 GM in PREMIX 1 EACH IV PRN (04:49)
[2019-09-30] MEDS ORDERED: ONDANSETRON 4 MG/2 ML VIAL IV PRN (04:49)
[2019-09-30] MEDS: ALBUTEROL/IPRATROPIUM 3 ML NEB RESP TX SCH ×3 (08:15→19:10)
[2019-09-30] MEDS: PANTOPRAZOLE 40 MG TABLET PO SCH (10:23)
[2019-09-30] MEDS ORDERED: NITROGLYCERIN TRANSLING PRN (11:04)
[2019-09-30] MEDS ORDERED: ALBUTEROL 2.5 MG/3 ML NEB RESP TX PRN (11:04)
[2019-09-30] MEDS ORDERED: MORPHINE ER 15 MG TABLET PO PRN (11:04)
[2019-09-30] MEDS: APIXABAN 5 MG TABLET PO SCH ×2 (12:59→20:18)
[2019-09-30] MEDS: SACUBITRIL/VALSARTAN 49-51 MG TABLET PO SCH (12:59)
[2019-09-30] MEDS: CLOPIDOGREL 75 MG TABLET PO SCH (12:59)
[2019-09-30] MEDS: POTASSIUM CHLORIDE 10 MEQ TABLET PO PRN (13:02)
[2019-09-30] MEDS: predniSONE 20 MG TABLET PO SCH (15:45)
[2019-09-30] MEDS: FUROSEMIDE 40 MG/4 ML VIAL IV SCH ×2 (15:45→16:00)
[2019-09-30] MEDS: carvediloL 12.5 MG TABLET PO SCH (16:00)
[2019-09-30] MEDS ORDERED: ATORVASTATIN 40 MG TABLET PO SCH (21:00)
[2019-10-01] MEDS: ALBUTEROL/IPRATROPIUM 3 ML NEB RESP TX SCH ×2 (01:53→07:19)
[2019-10-01] MEDS ORDERED: LEVOFLOXACIN INJ 500 MG in PREMIX 1 EACH IV SCH (03:00)
[2019-10-01 04:34] LABS: Basophils % 0.1 % (0.0-0.8); Hematocrit 38.4 VOL% (42.0-52.0); Hemoglobin 12.1 GM/DL (14.0-18.0); Immature Granulocytes % 0.7 %; Lymphocytes # 0.7 10*3/uL (1.4-4.0); Lymphocytes % 4.5 % (21.2-54.2); Mean Corpuscular HGB Conc 31.5 GM/DL (32-36); Mean Corpuscular Volume 82.6 FL (87-102); Mean Platelet Volume 13.1 FL (9.6-12.0); Monocytes % 5.9 % (1.7-12.7); Neutrophils % 88.8 % (38.7-73.9); Platelet Count 203 T/CUMM (130-400); Red Blood Count 4.65 MC/CUMM (3.8-5.5); Red Cell Distribution Width 17.5 % (9.3-17.3)
[2019-10-01 04:53] LABS: Albumin 3.2 G/DL (3.4-5.0); Bilirubin,Total 1.7 MG/DL (0.2-1.0); Calcium 8.8 MG/DL (8.5-10.1); Osmolality,Calculated 267.7 MOS/KG (273-304); Total Protein 6.8 G/DL (6.4-8.3)
[2019-10-01 05:09] LABS: Hypochromasia 1+; Lymphocytes 7 % (20-55); Segmented Neutrophils 89 % (50-85); Total Cells Counted 100
[2019-10-01 05:10] LABS: Microcytosis 1+; Ovalocytes Slight; Platelet Estimate Normal
[2019-10-01 08:32] VITALS: BP 110/59
[2019-10-01] MEDS: FUROSEMIDE 40 MG/4 ML VIAL IV SCH (09:27)
[2019-10-01] MEDS: predniSONE 20 MG TABLET PO SCH (09:27)
[2019-10-01] MEDS: SACUBITRIL/VALSARTAN 49-51 MG TABLET PO SCH (09:28)
[2019-10-01] MEDS: APIXABAN 5 MG TABLET PO SCH (09:28)
[2019-10-01] MEDS: carvediloL 12.5 MG TABLET PO SCH (09:28)
[2019-10-01] MEDS: PANTOPRAZOLE 40 MG TABLET PO SCH (09:28)
[2019-10-01] MEDS: POTASSIUM CHLORIDE 10 MEQ TABLET PO PRN (09:28)
[2019-10-01] MEDS: CLOPIDOGREL 75 MG TABLET PO SCH (09:28)
== END 2019-10-01 11:00 | disposition home or self-care (01) | DRG 190 ==
LOC: N.ED 01:48 → N.EDINP 04:49 → N.2W 09:08
PROVIDERS: ADMIT Internal Medicine; ATTEND Internal Medicine

== ENCOUNTER 2019-10-25 16:46 | Inpatient (IN) ==
[2019-10-25] MEDS ORDERED: methylPREDNISolone SOD SUC 125 MG/2 ML VIAL IV STA (17:17)
[2019-10-25] MEDS ORDERED: BUMETANIDE 1 MG/4 ML VIAL IV STA (17:17)
[2019-10-25 17:38] LABS: Basophils # 0.1 10*3/uL (0.0-0.2); Basophils % 0.9 % (0.0-0.8); Eosinophils # 0.2 10*3/uL (0.0-0.87); Eosinophils % 2.3 % (0.00-10.9); Hematocrit 40.4 VOL% (42.0-52.0); Hemoglobin 12.2 GM/DL (14.0-18.0); Immature Granulocytes % 0.4 %; Immature Granulocytes Absolute 0.03 #; Lymphocytes # 0.6 10*3/uL (1.4-4.0); Lymphocytes % 7.3 % (21.2-54.2); Mean Corpuscular HGB Conc 30.2 GM/DL (32-36); Mean Corpuscular Volume 86.5 FL (87-102); Mean Platelet Volume 11.4 FL (9.6-12.0); Monocytes % 8.7 % (1.7-12.7); Neutrophils % 80.4 % (38.7-73.9); Platelet Count 271 T/CUMM (130-400); Red Blood Count 4.67 MC/CUMM (3.8-5.5); Red Cell Distribution Width 17.2 % (9.3-17.3); White Blood Count 8.1 T/CUMM (4-12)
[2019-10-25] MEDS: ALBUTEROL 2.5 MG/3 ML NEB RESP TX SCH ×3 (17:39→17:55)
[2019-10-25 17:50] LABS: Albumin 3.3 G/DL (3.4-5.0); Bilirubin,Total 1.1 MG/DL (0.2-1.0); Calcium 9.6 MG/DL (8.5-10.1); Osmolality,Calculated 265.5 MOS/KG (273-304); Total Protein 7.4 G/DL (6.4-8.3)
[2019-10-25 18:48] LABS: Apearance,Urine CLEAR (Clear); Bilirubin,Urine Negative (Negative); Blood, Urine Small mg/dL (Negative); Glucose,Urine (UA) Negative (Negative); Hyaline Casts,Urine 1 /LPF (0-3); Ketones,Urine Negative (Negative); Mucus,Urine Occasional /LPF (Occasional); Nitrite,Urine Negative (Negative); Protein,Urine Negative; RBC,Urine <1 /HPF (0-4); Urine Color Yellow (Yellow); Urine Urobilinogen < 2.0 EU/DL (0.2-1.0)
[2019-10-25] MEDS ORDERED: MORPHINE ER 15 MG TABLET PO PRN (19:50)
[2019-10-25] MEDS: ATORVASTATIN 40 MG TABLET PO SCH (20:42)
[2019-10-25] MEDS: APIXABAN 5 MG TABLET PO SCH (20:42)
[2019-10-25] MEDS: cefTRIAXone 1,000 MG in SYRINGE 1 EACH IV SCH (20:42)
[2019-10-25] MEDS: ALBUTEROL/IPRATROPIUM 3 ML NEB RESP TX SCH (22:03)
[2019-10-26 00:02] VITALS: BP 88/56
[2019-10-26] MEDS ORDERED: CYCLOBENZAPRINE 10 MG TABLET PO ONE (00:36)
[2019-10-26] MEDS: ALBUTEROL/IPRATROPIUM 3 ML NEB RESP TX SCH ×4 (03:00→19:37)
[2019-10-26 04:28] LABS: Basophils % 0.2 % (0.0-0.8); Hematocrit 35.7 VOL% (42.0-52.0); Hemoglobin 10.8 GM/DL (14.0-18.0); Immature Granulocytes % 0.3 %; Immature Granulocytes Absolute 0.02 #; Lymphocytes # 0.2 10*3/uL (1.4-4.0); Lymphocytes % 2.6 % (21.2-54.2); Mean Corpuscular HGB Conc 30.3 GM/DL (32-36); Mean Corpuscular Volume 85.2 FL (87-102); Mean Platelet Volume 11.9 FL (9.6-12.0); Monocytes % 1.2 % (1.7-12.7); Neutrophils % 95.7 % (38.7-73.9); Platelet Count 244 T/CUMM (130-400); Red Blood Count 4.19 MC/CUMM (3.8-5.5); White Blood Count 6.5 T/CUMM (4-12)
[2019-10-26 04:46] LABS: Calcium 8.6 MG/DL (8.5-10.1); Osmolality,Calculated 274.7 MOS/KG (273-304)
[2019-10-26 05:21] LABS: Band Neutrophils 1 % (0-10); Hypochromasia 1+; Lymphocytes 1 % (20-55); Microcytosis 1+; Platelet Estimate Adequate; Segmented Neutrophils 98 % (50-85); Total Cells Counted 100
[2019-10-26] MEDS: methylPREDNISolone SOD SUC 40 MG/1 ML VIAL IV SCH ×2 (05:56→17:13)
[2019-10-26] MEDS ORDERED: carvediloL 12.5 MG TABLET PO SCH (08:00)
[2019-10-26] MEDS ORDERED: BUMETANIDE 1 MG/4 ML VIAL IV SCH (08:00)
[2019-10-26] MEDS ORDERED: MAGNESIUM SULF RIDER 4 GM in PREMIX 1 EACH IV ONE (08:05)
[2019-10-26] MEDS: SACUBITRIL/VALSARTAN 49-51 MG TABLET PO SCH (08:31)
[2019-10-26] MEDS: CLOPIDOGREL 75 MG TABLET PO SCH (08:31)
[2019-10-26] MEDS: APIXABAN 5 MG TABLET PO SCH ×2 (08:31→21:40)
[2019-10-26] MEDS: AZITHROMYCIN INJ 250 MG in SODIUM CHLORIDE 0.9% 150 ML IV SCH (08:40)
[2019-10-26] MEDS: BUMETANIDE 1 MG TABLET PO SCH ×2 (09:27→17:11)
[2019-10-26] MEDS: carvediloL 12.5 MG TABLET PO SCH ×2 (11:30→23:51)
[2019-10-26] MEDS: ATORVASTATIN 40 MG TABLET PO SCH (21:40)
[2019-10-26] MEDS: cefTRIAXone 1,000 MG in SYRINGE 1 EACH IV SCH (21:40)
[2019-10-27 05:37] LABS: Basophils % 0.1 % (0.0-0.8); Hematocrit 41.3 VOL% (42.0-52.0); Hemoglobin 12.5 GM/DL (14.0-18.0); Immature Granulocytes % 0.6 %; Immature Granulocytes Absolute 0.12 #; Lymphocytes # 0.4 10*3/uL (1.4-4.0); Mean Corpuscular HGB Conc 30.3 GM/DL (32-36); Mean Platelet Volume 11.6 FL (9.6-12.0); Monocytes % 3.1 % (1.7-12.7); Neutrophils % 94.2 % (38.7-73.9); Platelet Count 317 T/CUMM (130-400); Red Cell Distribution Width 17.1 % (9.3-17.3); White Blood Count 19.9 T/CUMM (4-12)
[2019-10-27] MEDS: methylPREDNISolone SOD SUC 40 MG/1 ML VIAL IV SCH (05:39)
[2019-10-27 05:55] LABS: Calcium 9.3 MG/DL (8.5-10.1); Osmolality,Calculated 273.4 MOS/KG (273-304)
[2019-10-27 06:29] LABS: Band Neutrophils 1 % (0-10); Hypochromasia 1+; Lymphocytes 2 % (20-55); Platelet Estimate Adequate; Segmented Neutrophils 93 % (50-85); Total Cells Counted 100
[2019-10-27 06:30] LABS: Microcytosis 1+
[2019-10-27] MEDS: ALBUTEROL/IPRATROPIUM 3 ML NEB RESP TX SCH ×2 (07:36)
[2019-10-27] MEDS: AZITHROMYCIN INJ 250 MG in SODIUM CHLORIDE 0.9% 150 ML IV SCH (08:33)
[2019-10-27] MEDS: CLOPIDOGREL 75 MG TABLET PO SCH (08:33)
[2019-10-27] MEDS: SACUBITRIL/VALSARTAN 49-51 MG TABLET PO SCH (08:33)
[2019-10-27] MEDS: APIXABAN 5 MG TABLET PO SCH (08:34)
[2019-10-27] MEDS ORDERED: ALUM/MAG/SIMETH/LIDO VISC 1:1 30 ML BOTTLE PO ONE (09:05)
[2019-10-27] MEDS ORDERED: FUROSEMIDE 40 MG/5 ML UDCUP PO ONE (10:29)
== END 2019-10-27 10:50 | disposition home or self-care (01) | DRG 291 ==
LOC: N.EDINP 16:46 → N.ED 16:46 → SUATTDRO 18:56 → N.CC 19:50
PROVIDERS: ADMIT Internal Medicine; ATTEND Internal Medicine

== ENCOUNTER 2021-04-21 18:52 | Inpatient (IN) ==
[2021-04-21] MEDS ORDERED: ONDANSETRON 4 MG/2 ML VIAL IV STA (21:02)
[2021-04-21] MEDS ORDERED: MORPHINE 2 MG/1 ML SYRINGE IV STA (21:02)
[2021-04-21] MEDS ORDERED: FUROSEMIDE 100 MG/10 ML VIAL IV STA (21:02)
[2021-04-21] MEDS ORDERED: methylPREDNISolone SOD SUC 125 MG/2 ML VIAL IV STA (21:02)
[2021-04-21] MEDS ORDERED: ALBUTEROL/IPRATROPIUM 3 ML NEB RESP TX STA (21:02)
[2021-04-21] MEDS ORDERED: MORPHINE 2 MG/1 ML SYRINGE ONE (21:09)
[2021-04-21 21:14] LABS: Basophils # 0.1 10*3/uL (0.0-0.2); Eosinophils # 0.1 10*3/uL (0.0-0.87); Eosinophils % 1.4 % (0.00-10.9); Hematocrit 43.3 VOL% (42.0-52.0); Hemoglobin 13.1 GM/DL (14.0-18.0); Immature Granulocytes % 0.4 %; Immature Granulocytes Absolute 0.03 #; Lymphocytes # 0.6 10*3/uL (1.4-4.0); Lymphocytes % 9.1 % (21.2-54.2); Mean Corpuscular HGB Conc 30.3 GM/DL (32-36); Mean Corpuscular Volume 89.8 FL (87-102); Mean Platelet Volume 12.7 FL (9.6-12.0); Neutrophils % 80.1 % (38.7-73.9); Platelet Count 163 T/CUMM (130-400); Red Blood Count 4.82 MC/CUMM (3.8-5.5); Red Cell Distribution Width 16.9 % (9.3-17.3)
[2021-04-21 21:24] LABS: INR 1.1; PT Patient Result 12.8 SECS (10.5-12.0)
[2021-04-21 21:38] LABS: Albumin 3.6 G/DL (3.4-5.0); Bilirubin,Total 1.6 MG/DL (0.20-1.00); Calcium 8.9 MG/DL (8.5-10.1); Osmolality,Calculated 287.4 MOS/KG (273-304); Potassium 4.6 MMOL/L (3.5-5.1); Total Protein 6.5 G/DL (6.4-8.2)
[2021-04-21 22:23] LABS: Bilirubin,Urine Negative (Negative); Blood, Urine Negative (Negative); Glucose,Urine (UA) Negative (Negative); Ketones,Urine Negative (Negative); Mucus,Urine Occasional /LPF (Occasional); Nitrite,Urine Negative (Negative); Protein,Urine 100 MG/DL; RBC,Urine 3 /HPF (0-4); Urine Appearance CLEAR (Clear); Urine Color Yellow (Yellow); Urine Specific Gravity 1.019 (1.001-1.035); Urine Urobilinogen < 2.0 EU/DL (0.2-1.0)
[2021-04-21] MEDS ORDERED: DOCUSATE SODIUM 100 MG CAPSULE PO PRN (22:52)
[2021-04-21] MEDS ORDERED: hydrALAZINE 20 MG/1 ML VIAL IV PRN (22:52)
[2021-04-21] MEDS ORDERED: NICOTINE 21 MG/24 HR PATCH TRANSDERM PRN (22:52)
[2021-04-21] MEDS ORDERED: DEXTROSE 50% 25 GM/50 ML VIAL IV PRN (22:52)
[2021-04-21] MEDS ORDERED: ZALEPLON 5 MG CAPSULE PO PRN (22:52)
[2021-04-21] MEDS ORDERED: GLUCAGON 1 MG VIAL IM PRN (22:52)
[2021-04-21] MEDS ORDERED: ONDANSETRON 4 MG/2 ML VIAL IV PRN (22:52)
[2021-04-21] MEDS ORDERED: APIXABAN 2.5 MG TABLET PO ONE (23:13)
[2021-04-21] MEDS: amLODIPine 10 MG TABLET PO SCH (23:45)
[2021-04-22] MEDS: ALBUTEROL/IPRATROPIUM 3 ML NEB RESP TX SCH ×4 (03:28→19:42)
[2021-04-22 05:40] LABS: Basophils % 0.3 % (0.0-0.8); Eosinophils % 0.2 % (0.00-10.9); Hematocrit 40.6 VOL% (42.0-52.0); Hemoglobin 12.3 GM/DL (14.0-18.0); Immature Granulocytes % 0.5 %; Immature Granulocytes Absolute 0.03 #; Lymphocytes # 0.2 10*3/uL (1.4-4.0); Lymphocytes % 2.5 % (21.2-54.2); Mean Corpuscular HGB Conc 30.3 GM/DL (32-36); Mean Corpuscular Volume 89.6 FL (87-102); Mean Platelet Volume 12.2 FL (9.6-12.0); Monocytes % 1.3 % (1.7-12.7); Neutrophils % 95.2 % (38.7-73.9); Platelet Count 139 T/CUMM (130-400); Red Blood Count 4.53 MC/CUMM (3.8-5.5); Red Cell Distribution Width 16.5 % (9.3-17.3); White Blood Count 6.4 T/CUMM (4-12)
[2021-04-22 06:09] LABS: Lymphocytes 2 % (20-55); Platelet Estimate Normal; Segmented Neutrophils 97 % (50-85); Total Cells Counted 100
[2021-04-22 06:11] LABS: Albumin 3.2 G/DL (3.4-5.0); Bilirubin,Total 1.5 MG/DL (0.20-1.00); Calcium 8.6 MG/DL (8.5-10.1); Osmolality,Calculated 286.7 MOS/KG (273-304); Potassium 4.4 MMOL/L (3.5-5.1); Total Protein 6.2 G/DL (6.4-8.2)
[2021-04-22] MEDS: FUROSEMIDE 40 MG/4 ML VIAL IV SCH ×2 (10:10→15:44)
[2021-04-22] MEDS: APIXABAN 2.5 MG TABLET PO SCH ×2 (10:10→20:59)
[2021-04-22] MEDS: CLOPIDOGREL 75 MG TABLET PO SCH (10:10)
[2021-04-22] MEDS: PANTOPRAZOLE 40 MG TABLET PO SCH (10:10)
[2021-04-22] MEDS: amLODIPine 10 MG TABLET PO SCH (10:10)
[2021-04-22] MEDS: ATORVASTATIN 40 MG TABLET PO SCH (20:59)
[2021-04-23] MEDS: ALBUTEROL/IPRATROPIUM 3 ML NEB RESP TX SCH ×4 (01:09→20:25)
[2021-04-23 06:03] LABS: Basophils % 0.2 % (0.0-0.8); Eosinophils % 0.1 % (0.00-10.9); Hematocrit 40.5 VOL% (42.0-52.0); Hemoglobin 12.5 GM/DL (14.0-18.0); Immature Granulocytes % 0.5 %; Immature Granulocytes Absolute 0.06 #; Lymphocytes # 0.4 10*3/uL (1.4-4.0); Lymphocytes % 3.2 % (21.2-54.2); Mean Corpuscular HGB Conc 30.9 GM/DL (32-36); Mean Platelet Volume 12.5 FL (9.6-12.0); Monocytes % 7.1 % (1.7-12.7); Neutrophils % 88.9 % (38.7-73.9); Platelet Count 176 T/CUMM (130-400); Red Blood Count 4.55 MC/CUMM (3.8-5.5); Red Cell Distribution Width 16.5 % (9.3-17.3); White Blood Count 12.7 T/CUMM (4-12)
[2021-04-23 06:21] LABS: Calcium 8.9 MG/DL (8.5-10.1); Osmolality,Calculated 284.7 MOS/KG (273-304); Potassium 4.4 MMOL/L (3.5-5.1)
[2021-04-23 06:43] LABS: Band Neutrophils 1 % (0-10); Hypochromasia 1+; Lymphocytes 1 % (20-55); Microcytosis 1+; Ovalocytes Slight; Segmented Neutrophils 94 % (50-85); Total Cells Counted 100
[2021-04-23 06:44] LABS: Platelet Estimate Adequate; Polychromasia Slight
[2021-04-23] MEDS: amLODIPine 10 MG TABLET PO SCH (09:25)
[2021-04-23] MEDS: PANTOPRAZOLE 40 MG TABLET PO SCH (09:25)
[2021-04-23] MEDS: CLOPIDOGREL 75 MG TABLET PO SCH (09:25)
[2021-04-23] MEDS: APIXABAN 2.5 MG TABLET PO SCH ×2 (09:25→20:50)
[2021-04-23] MEDS: FUROSEMIDE 40 MG/4 ML VIAL IV SCH (09:26)
[2021-04-23] MEDS: diphenhydrAMINE CAP 25 MG CAPSULE PO PRN ×2 (14:34→20:50)
[2021-04-23] MEDS: guaiFENesin/DM ER 600-30 MG TABLET PO PRN (14:44)
[2021-04-23] MEDS: ATORVASTATIN 40 MG TABLET PO SCH (20:50)
[2021-04-23] MEDS: carvediloL 6.25 MG TABLET PO SCH (20:51)
[2021-04-23] MEDS: DOXYCYCLINE HYCLATE 100 MG CAPSULE PO SCH (20:51)
[2021-04-24] MEDS: ALBUTEROL/IPRATROPIUM 3 ML NEB RESP TX SCH ×4 (00:23→21:04)
[2021-04-24 05:17] LABS: Basophils % 0.5 % (0.0-0.8); Eosinophils # 0.1 10*3/uL (0.0-0.87); Eosinophils % 1.5 % (0.00-10.9); Hematocrit 37.7 VOL% (42.0-52.0); Hemoglobin 11.6 GM/DL (14.0-18.0); Immature Granulocytes % 0.4 %; Immature Granulocytes Absolute 0.03 #; Lymphocytes # 0.6 10*3/uL (1.4-4.0); Lymphocytes % 7.5 % (21.2-54.2); Mean Corpuscular HGB Conc 30.8 GM/DL (32-36); Mean Corpuscular Volume 88.9 FL (87-102); Mean Platelet Volume 12.2 FL (9.6-12.0); Monocytes % 9.4 % (1.7-12.7); Neutrophils % 80.7 % (38.7-73.9); Platelet Count 167 T/CUMM (130-400); Red Blood Count 4.24 MC/CUMM (3.8-5.5); Red Cell Distribution Width 16.7 % (9.3-17.3)
[2021-04-24 05:38] LABS: Calcium 8.2 MG/DL (8.5-10.1); Osmolality,Calculated 284.8 MOS/KG (273-304); Potassium 4.9 MMOL/L (3.5-5.1)
[2021-04-24] MEDS ORDERED: FUROSEMIDE 40 MG/4 ML VIAL IV SCH (09:00)
[2021-04-24] MEDS: CLOPIDOGREL 75 MG TABLET PO SCH (09:25)
[2021-04-24] MEDS: DOXYCYCLINE HYCLATE 100 MG CAPSULE PO SCH ×2 (09:25→20:26)
[2021-04-24] MEDS: PANTOPRAZOLE 40 MG TABLET PO SCH (09:25)
[2021-04-24] MEDS: APIXABAN 2.5 MG TABLET PO SCH ×2 (09:26→20:26)
[2021-04-24] MEDS: carvediloL 6.25 MG TABLET PO SCH ×2 (09:26→20:27)
[2021-04-24] MEDS ORDERED: LANOLIN 50% CREAM 0.3 OZ TUBE TOP PRN (11:05)
[2021-04-24] MEDS: guaiFENesin/DM ER 600-30 MG TABLET PO PRN (15:12)
[2021-04-24] MEDS: diphenhydrAMINE CAP 25 MG CAPSULE PO PRN (15:18)
[2021-04-24] MEDS: ATORVASTATIN 40 MG TABLET PO SCH (20:27)
[2021-04-25] MEDS: ALBUTEROL/IPRATROPIUM 3 ML NEB RESP TX SCH (01:18)
[2021-04-25 06:11] LABS: Basophils # 0.1 10*3/uL (0.0-0.2); Basophils % 0.8 % (0.0-0.8); Eosinophils # 0.2 10*3/uL (0.0-0.87); Eosinophils % 2.6 % (0.00-10.9); Hematocrit 38.6 VOL% (42.0-52.0); Immature Granulocytes % 0.4 %; Immature Granulocytes Absolute 0.03 #; Lymphocytes # 0.7 10*3/uL (1.4-4.0); Lymphocytes % 10.1 % (21.2-54.2); Mean Corpuscular HGB Conc 31.1 GM/DL (32-36); Mean Corpuscular Volume 87.9 FL (87-102); Mean Platelet Volume 12.2 FL (9.6-12.0); Neutrophils % 76.1 % (38.7-73.9); Platelet Count 162 T/CUMM (130-400); Red Blood Count 4.39 MC/CUMM (3.8-5.5); Red Cell Distribution Width 16.1 % (9.3-17.3); White Blood Count 7.2 T/CUMM (4-12)
[2021-04-25 06:40] LABS: Calcium 8.7 MG/DL (8.5-10.1); Osmolality,Calculated 280.1 MOS/KG (273-304); Potassium 4.7 MMOL/L (3.5-5.1)
[2021-04-25] MEDS: PANTOPRAZOLE 40 MG TABLET PO SCH (08:43)
[2021-04-25] MEDS: APIXABAN 2.5 MG TABLET PO SCH (08:43)
[2021-04-25] MEDS: CLOPIDOGREL 75 MG TABLET PO SCH (08:43)
[2021-04-25] MEDS: carvediloL 6.25 MG TABLET PO SCH (08:43)
[2021-04-25] MEDS: DOXYCYCLINE HYCLATE 100 MG CAPSULE PO SCH (08:43)
[2021-04-25] MEDS ORDERED: FUROSEMIDE 40 MG TABLET PO SCH (09:00)
[2021-04-25 12:26] VITALS: BP 123/54
== END 2021-04-25 14:40 | disposition home or self-care (01) | DRG 291 ==
LOC: N.ED 18:52 → N.EDINP 18:52 → SUATTDRO 04-22 → N.EDINP 04-22 01:27 → N.TELEN 04-22 02:21 → SUATTDRO 04-24 12:15
PROVIDERS: ADMIT Internal Medicine; ATTEND Internal Medicine

== ENCOUNTER 2021-06-07 08:21 | Inpatient (IN) ==
[2021-06-07] MEDS ORDERED: FUROSEMIDE 40 MG/4 ML VIAL IV STA ×2 (08:47→10:01)
[2021-06-07] MEDS ORDERED: NITROGLYCERIN 2% OINT 1 INCH/GM PACK TOP STA (08:47)
[2021-06-07 09:05] LABS: Basophils # 0.1 10*3/uL (0.0-0.2); Basophils % 0.5 % (0.0-0.8); Eosinophils # 0.1 10*3/uL (0.0-0.87); Eosinophils % 0.8 % (0.00-10.9); Hematocrit 42.7 VOL% (42.0-52.0); Hemoglobin 13.1 GM/DL (14.0-18.0); Immature Granulocytes % 0.6 %; Immature Granulocytes Absolute 0.08 #; Lymphocytes # 0.5 10*3/uL (1.4-4.0); Lymphocytes % 4.2 % (21.2-54.2); Mean Corpuscular HGB Conc 30.7 GM/DL (32-36); Mean Corpuscular Volume 86.1 FL (87-102); Mean Platelet Volume 11.1 FL (9.6-12.0); Monocytes % 6.4 % (1.7-12.7); Neutrophils % 87.5 % (38.7-73.9); Platelet Count 336 T/CUMM (130-400); Red Blood Count 4.96 MC/CUMM (3.8-5.5); Red Cell Distribution Width 16.9 % (9.3-17.3); White Blood Count 12.4 T/CUMM (4-12)
[2021-06-07 09:17] LABS: INR 1.1; PT Patient Result 12.4 SECS (10.5-12.0)
[2021-06-07 09:23] LABS: Lymphocytes 6 % (20-55); Platelet Estimate Adequate; Segmented Neutrophils 88 % (50-85); Total Cells Counted 100
[2021-06-07 09:24] LABS: Hypochromasia Slight; Microcytosis Slight
[2021-06-07 09:29] LABS: Albumin 3.2 G/DL (3.4-5.0); Bilirubin,Total 1.2 MG/DL (0.20-1.00); Calcium 9.5 MG/DL (8.5-10.1); Osmolality,Calculated 284.8 MOS/KG (273-304); Potassium 4.9 MMOL/L (3.5-5.1); Total Protein 6.4 G/DL (6.4-8.2)
[2021-06-07 09:36] LABS: Partial Thromboplastin Time 27.9 SECS (23.8-32.1)
[2021-06-07 09:36] LABS: Bilirubin,Urine Negative (Negative); Blood, Urine Negative (Negative); Glucose,Urine (UA) Negative (Negative); Ketones,Urine Negative (Negative); Mucus,Urine Occasional /LPF (Occasional); Nitrite,Urine Negative (Negative); Protein,Urine 30 MG/DL; RBC,Urine 4 /HPF (0-4); Squamous Epithelial Cell,Urine Occasional /HPF (0-10); Urine Appearance CLEAR (Clear); Urine Color Yellow (Yellow); Urine Specific Gravity 1.014 (1.001-1.035); Urine Urobilinogen < 2.0 EU/DL (0.2-1.0)
[2021-06-07] MEDS ORDERED: ONDANSETRON 4 MG/2 ML VIAL ONE (09:53)
[2021-06-07] MEDS ORDERED: MORPHINE 2 MG/1 ML SYRINGE ONE (09:53)
[2021-06-07] MEDS ORDERED: MORPHINE 2 MG/1 ML SYRINGE IV STA ×2 (09:56→12:42)
[2021-06-07] MEDS ORDERED: ONDANSETRON 4 MG/2 ML VIAL IV STA (09:58)
[2021-06-07] MEDS ORDERED: GLUCAGON 1 MG VIAL IM PRN (10:24)
[2021-06-07] MEDS ORDERED: DOCUSATE SODIUM 100 MG CAPSULE PO PRN (10:24)
[2021-06-07] MEDS ORDERED: DEXTROSE 50% 25 GM/50 ML VIAL IV PRN (10:24)
[2021-06-07] MEDS ORDERED: NITROGLYCERIN TRANSLING PRN (14:22)
[2021-06-07] MEDS: APIXABAN 2.5 MG TABLET PO SCH ×2 (17:31→20:32)
[2021-06-07] MEDS: carvediloL 6.25 MG TABLET PO SCH ×2 (17:31→20:32)
[2021-06-07] MEDS: FUROSEMIDE 40 MG/4 ML VIAL IV SCH (17:42)
[2021-06-07] MEDS: BUDESONIDE/FORMOTEROL 160-4.5 INHALER 6 GM INH SCH (20:31)
[2021-06-07] MEDS: MORPHINE ER 15 MG TABLET PO PRN (20:31)
[2021-06-07] MEDS: ASCORBIC ACID 500 MG TABLET PO SCH (20:32)
[2021-06-07] MEDS: ATORVASTATIN 40 MG TABLET PO SCH (20:32)
[2021-06-08 05:23] LABS: Basophils # 0.1 10*3/uL (0.0-0.2); Basophils % 0.7 % (0.0-0.8); Eosinophils # 0.1 10*3/uL (0.0-0.87); Eosinophils % 1.3 % (0.00-10.9); Hematocrit 36.6 VOL% (42.0-52.0); Hemoglobin 11.2 GM/DL (14.0-18.0); Immature Granulocytes % 0.5 %; Immature Granulocytes Absolute 0.05 #; Lymphocytes # 0.5 10*3/uL (1.4-4.0); Lymphocytes % 5.8 % (21.2-54.2); Mean Corpuscular HGB Conc 30.6 GM/DL (32-36); Mean Corpuscular Volume 86.7 FL (87-102); Mean Platelet Volume 11.1 FL (9.6-12.0); Monocytes % 7.7 % (1.7-12.7); Platelet Count 291 T/CUMM (130-400); Red Blood Count 4.22 MC/CUMM (3.8-5.5); Red Cell Distribution Width 16.7 % (9.3-17.3); White Blood Count 9.2 T/CUMM (4-12)
[2021-06-08] MEDS: BUDESONIDE/FORMOTEROL 160-4.5 INHALER 6 GM INH SCH ×2 (05:23→17:06)
[2021-06-08 05:38] LABS: Albumin 2.8 G/DL (3.4-5.0); Bilirubin,Total 1.2 MG/DL (0.20-1.00); Potassium 4.6 MMOL/L (3.5-5.1); Total Protein 6.1 G/DL (6.4-8.2)
[2021-06-08] MEDS: FUROSEMIDE 40 MG/4 ML VIAL IV SCH ×2 (08:56→16:13)
[2021-06-08] MEDS: carvediloL 6.25 MG TABLET PO SCH ×2 (08:57→22:25)
[2021-06-08] MEDS: PANTOPRAZOLE 40 MG TABLET PO SCH (08:58)
[2021-06-08] MEDS: CLOPIDOGREL 75 MG TABLET PO SCH (08:58)
[2021-06-08] MEDS: ASCORBIC ACID 500 MG TABLET PO SCH ×2 (08:59→22:24)
[2021-06-08] MEDS: APIXABAN 2.5 MG TABLET PO SCH ×2 (08:59→22:23)
[2021-06-08] MEDS: MORPHINE ER 15 MG TABLET PO PRN (08:59)
[2021-06-08] MEDS: AMIODARONE 200 MG TABLET PO SCH (13:16)
[2021-06-08] MEDS ORDERED: NAPROXEN 250 MG TABLET PO PRN (15:31)
[2021-06-08] MEDS ORDERED: SACUBITRIL/VALSARTAN 49-51 MG TABLET PO SCH (21:00)
[2021-06-08] MEDS: ATORVASTATIN 40 MG TABLET PO SCH (22:23)
[2021-06-09 05:50] LABS: Basophils % 0.4 % (0.0-0.8); Eosinophils # 0.1 10*3/uL (0.0-0.87); Eosinophils % 1.4 % (0.00-10.9); Hematocrit 37.9 VOL% (42.0-52.0); Hemoglobin 11.8 GM/DL (14.0-18.0); Immature Granulocytes % 0.4 %; Immature Granulocytes Absolute 0.03 #; Lymphocytes # 0.4 10*3/uL (1.4-4.0); Lymphocytes % 4.6 % (21.2-54.2); Mean Corpuscular HGB Conc 31.1 GM/DL (32-36); Mean Corpuscular Volume 86.7 FL (87-102); Mean Platelet Volume 11.2 FL (9.6-12.0); Monocytes % 6.3 % (1.7-12.7); Neutrophils % 86.9 % (38.7-73.9); Platelet Count 311 T/CUMM (130-400); Red Blood Count 4.37 MC/CUMM (3.8-5.5); White Blood Count 7.7 T/CUMM (4-12)
[2021-06-09 06:10] LABS: Calcium 9.1 MG/DL (8.5-10.1); Osmolality,Calculated 282.1 MOS/KG (273-304); Potassium 4.9 MMOL/L (3.5-5.1)
[2021-06-09 06:13] LABS: Eosinophils 2 % (0-10); Hypochromasia Slight; Lymphocytes 1 % (20-55); Microcytosis Slight; Platelet Estimate Adequate; Segmented Neutrophils 92 % (50-85); Total Cells Counted 100
[2021-06-09] MEDS: BUDESONIDE/FORMOTEROL 160-4.5 INHALER 6 GM INH SCH ×2 (07:27→18:02)
[2021-06-09] MEDS: AMIODARONE 200 MG TABLET PO SCH (09:23)
[2021-06-09] MEDS: PANTOPRAZOLE 40 MG TABLET PO SCH (09:24)
[2021-06-09] MEDS: CLOPIDOGREL 75 MG TABLET PO SCH (09:24)
[2021-06-09] MEDS: APIXABAN 2.5 MG TABLET PO SCH ×2 (09:24→22:35)
[2021-06-09] MEDS: ASCORBIC ACID 500 MG TABLET PO SCH ×2 (09:24→22:35)
[2021-06-09] MEDS: carvediloL 6.25 MG TABLET PO SCH (09:27)
[2021-06-09] MEDS: FUROSEMIDE 40 MG/4 ML VIAL IV SCH (09:28)
[2021-06-09] MEDS ORDERED: MAGNESIUM SULF RIDER 2 GM/50 ML PREMIX IV ONE (11:57)
[2021-06-09] MEDS ORDERED: cefTRIAXone 1,000 MG VIAL IM SCH (12:00)
[2021-06-09] MEDS ORDERED: LACTULOSE 20 GM/30 ML UDCUP PO SCH (12:23)
[2021-06-09] MEDS: DOXYCYCLINE HYCLATE 100 MG CAPSULE PO SCH ×2 (13:22→22:35)
[2021-06-09] MEDS: methylPREDNISolone SOD SUC 40 MG/1 ML VIAL IV SCH ×2 (13:22→22:36)
[2021-06-09] MEDS: cefTRIAXone 2,000 MG in SODIUM CHLORIDE 0.9% 100 ML IV SCH (13:23)
[2021-06-09] MEDS: ALBUTEROL/IPRATROPIUM 3 ML NEB RESP TX SCH ×4 (13:25→20:34)
[2021-06-09] MEDS ORDERED: TORSEMIDE 20 MG TABLET PO SCH (16:00)
[2021-06-09] MEDS: carvediloL 3.125 MG TABLET PO SCH (16:46)
[2021-06-09] MEDS: LACTULOSE 20 GM/30 ML UDCUP PO SCH ×3 (16:47→22:35)
[2021-06-09] MEDS: ATORVASTATIN 40 MG TABLET PO SCH (22:35)
[2021-06-10] MEDS: LACTULOSE 20 GM/30 ML UDCUP PO SCH ×4 (01:00→13:28)
[2021-06-10] MEDS: ALBUTEROL/IPRATROPIUM 3 ML NEB RESP TX SCH ×4 (01:08→19:49)
[2021-06-10] MEDS: BUDESONIDE/FORMOTEROL 160-4.5 INHALER 6 GM INH SCH ×2 (05:57→19:19)
[2021-06-10] MEDS: methylPREDNISolone SOD SUC 40 MG/1 ML VIAL IV SCH ×3 (05:57→21:05)
[2021-06-10 07:37] LABS: Basophils % 0.2 % (0.0-0.8); Hematocrit 40.4 VOL% (42.0-52.0); Hemoglobin 12.6 GM/DL (14.0-18.0); Immature Granulocytes % 0.4 %; Immature Granulocytes Absolute 0.02 #; Lymphocytes # 0.2 10*3/uL (1.4-4.0); Mean Corpuscular HGB Conc 31.2 GM/DL (32-36); Mean Corpuscular Volume 85.1 FL (87-102); Mean Platelet Volume 11.4 FL (9.6-12.0); Monocytes % 5.2 % (1.7-12.7); Neutrophils % 89.2 % (38.7-73.9); Platelet Count 316 T/CUMM (130-400); Red Blood Count 4.75 MC/CUMM (3.8-5.5); White Blood Count 4.8 T/CUMM (4-12)
[2021-06-10 08:04] LABS: Calcium 9.3 MG/DL (8.5-10.1); Osmolality,Calculated 276.7 MOS/KG (273-304); Potassium 4.6 MMOL/L (3.5-5.1)
[2021-06-10] MEDS ORDERED: FUROSEMIDE 40 MG TABLET PO SCH (09:00)
[2021-06-10] MEDS ORDERED: SODIUM PHOSPHATE ENEMA 133 ML BOTTLE RECTAL ONE ×2 (09:00→11:02)
[2021-06-10] MEDS ORDERED: AMIODARONE 200 MG TABLET PO SCH (09:00)
[2021-06-10] MEDS: DOXYCYCLINE HYCLATE 100 MG CAPSULE PO SCH (09:55)
[2021-06-10] MEDS: ASCORBIC ACID 500 MG TABLET PO SCH (09:55)
[2021-06-10] MEDS: CLOPIDOGREL 75 MG TABLET PO SCH (09:55)
[2021-06-10] MEDS: APIXABAN 2.5 MG TABLET PO SCH (09:56)
[2021-06-10] MEDS: carvediloL 3.125 MG TABLET PO SCH (09:56)
[2021-06-10] MEDS: PANTOPRAZOLE 40 MG TABLET PO SCH (11:27)
[2021-06-10] MEDS: cefTRIAXone 2,000 MG in SODIUM CHLORIDE 0.9% 100 ML IV SCH (13:26)
[2021-06-10] MEDS: ONDANSETRON 4 MG/2 ML VIAL IV PRN (14:02)
[2021-06-10] MEDS ORDERED: MORPHINE 2 MG/1 ML SYRINGE IV PRN (14:17)
[2021-06-10] MEDS: PANTOPRAZOLE 40 MG VIAL IV SCH (15:38)
[2021-06-10] MEDS: ENOXAPARIN 80 MG/0.8 ML SYRINGE SUBCUT SCH (15:39)
[2021-06-10] MEDS: SODIUM CHLORIDE 0.9% 1,000 ML IV SCH (15:43)
[2021-06-10] MEDS: METOPROLOL TARTRATE 5 MG/5 ML VIAL IV SCH (19:19)
[2021-06-10] MEDS: DOXYCYCLINE HYCLATE INJ 100 MG in SODIUM CHLORIDE 0.9% 100 ML IV SCH (21:10)
[2021-06-11] MEDS: METOPROLOL TARTRATE 5 MG/5 ML VIAL IV SCH ×3 (00:37→13:00)
[2021-06-11] MEDS: ALBUTEROL/IPRATROPIUM 3 ML NEB RESP TX SCH ×4 (00:37→19:49)
[2021-06-11 05:22] LABS: Basophils % 0.1 % (0.0-0.8); Hematocrit 39.8 VOL% (42.0-52.0); Hemoglobin 12.4 GM/DL (14.0-18.0); Immature Granulocytes % 0.4 %; Immature Granulocytes Absolute 0.04 #; Lymphocytes # 0.3 10*3/uL (1.4-4.0); Lymphocytes % 2.7 % (21.2-54.2); Mean Corpuscular HGB Conc 31.2 GM/DL (32-36); Mean Corpuscular Volume 84.7 FL (87-102); Mean Platelet Volume 11.2 FL (9.6-12.0); Monocytes % 6.3 % (1.7-12.7); Neutrophils % 90.5 % (38.7-73.9); Platelet Count 365 T/CUMM (130-400); Red Cell Distribution Width 17.2 % (9.3-17.3); White Blood Count 10.2 T/CUMM (4-12)
[2021-06-11 05:49] LABS: Calcium 9.2 MG/DL (8.5-10.1); Osmolality,Calculated 283.2 MOS/KG (273-304); Potassium 4.3 MMOL/L (3.5-5.1)
[2021-06-11] MEDS: methylPREDNISolone SOD SUC 40 MG/1 ML VIAL IV SCH ×2 (05:50→13:00)
[2021-06-11] MEDS: BUDESONIDE/FORMOTEROL 160-4.5 INHALER 6 GM INH SCH ×2 (05:50→17:16)
[2021-06-11] MEDS: SODIUM CHLORIDE 0.9% 1,000 ML IV SCH (06:00)
[2021-06-11 07:35] LABS: Band Neutrophils 15 % (0-10); Lymphocytes 3 % (20-55); Segmented Neutrophils 77 % (50-85); Total Cells Counted 100
[2021-06-11 07:36] LABS: Anisocytosis 1+; Macrocytosis Slight; Ovalocytes 1+; Platelet Estimate Normal
[2021-06-11] MEDS: PANTOPRAZOLE 40 MG VIAL IV SCH (09:00)
[2021-06-11] MEDS ORDERED: metroNIDAZOLE INJ 500 MG/100 ML PREMIX IV SCH (09:00)
[2021-06-11] MEDS: DOXYCYCLINE HYCLATE INJ 100 MG in SODIUM CHLORIDE 0.9% 100 ML IV SCH (12:00)
[2021-06-11] MEDS: cefTRIAXone 2,000 MG in SODIUM CHLORIDE 0.9% 100 ML IV SCH (14:43)
[2021-06-11] MEDS: ENOXAPARIN 80 MG/0.8 ML SYRINGE SUBCUT SCH (14:45)
[2021-06-11] MEDS: DOXYCYCLINE HYCLATE 100 MG CAPSULE PO SCH (21:38)
[2021-06-11] MEDS: AMOXICILLIN/CLAV 875 MG TABLET PO SCH (21:38)
[2021-06-11] MEDS: ASCORBIC ACID 500 MG TABLET PO SCH (21:38)
[2021-06-11] MEDS: ATORVASTATIN 40 MG TABLET PO SCH (21:39)
[2021-06-11] MEDS: carvediloL 3.125 MG TABLET PO SCH (21:39)
[2021-06-11] MEDS: APIXABAN 2.5 MG TABLET PO SCH (21:39)
[2021-06-12] MEDS: ALBUTEROL/IPRATROPIUM 3 ML NEB RESP TX SCH ×4 (01:35→20:26)
[2021-06-12 05:12] LABS: Basophils % 0.1 % (0.0-0.8); Hematocrit 37.8 VOL% (42.0-52.0); Hemoglobin 11.9 GM/DL (14.0-18.0); Immature Granulocytes % 0.5 %; Immature Granulocytes Absolute 0.07 #; Lymphocytes # 0.3 10*3/uL (1.4-4.0); Mean Corpuscular HGB Conc 31.5 GM/DL (32-36); Mean Corpuscular Volume 84.6 FL (87-102); Mean Platelet Volume 11.2 FL (9.6-12.0); Monocytes % 6.9 % (1.7-12.7); Neutrophils % 90.5 % (38.7-73.9); Platelet Count 312 T/CUMM (130-400); Red Blood Count 4.47 MC/CUMM (3.8-5.5); Red Cell Distribution Width 17.3 % (9.3-17.3); White Blood Count 13.9 T/CUMM (4-12)
[2021-06-12 05:30] LABS: Calcium 8.8 MG/DL (8.5-10.1); Osmolality,Calculated 293.7 MOS/KG (273-304); Potassium 4.3 MMOL/L (3.5-5.1)
[2021-06-12 05:45] LABS: Band Neutrophils 7 % (0-10); Lymphocytes 2 % (20-55); Platelet Estimate Normal; Segmented Neutrophils 84 % (50-85); Total Cells Counted 100
[2021-06-12 05:46] LABS: Anisocytosis 2+; Burr Cells Few; Macrocytosis Slight; Ovalocytes Few; Target Cells Few
[2021-06-12] MEDS: BUDESONIDE/FORMOTEROL 160-4.5 INHALER 6 GM INH SCH ×2 (06:25→17:30)
[2021-06-12] MEDS: PANTOPRAZOLE 40 MG VIAL IV SCH (09:00)
[2021-06-12] MEDS ORDERED: predniSONE 20 MG TABLET PO SCH (09:00)
[2021-06-12] MEDS ORDERED: SODIUM CHLORIDE 0.9% 500 ML IV ONE (09:27)
[2021-06-12] MEDS ORDERED: SODIUM CHLORIDE 0.9% 500 ML IV SCH (09:30)
[2021-06-12] MEDS: CLOPIDOGREL 75 MG TABLET PO SCH (09:47)
[2021-06-12] MEDS: carvediloL 3.125 MG TABLET PO SCH ×2 (09:47→21:29)
[2021-06-12] MEDS: AMOXICILLIN/CLAV 875 MG TABLET PO SCH (09:47)
[2021-06-12] MEDS: APIXABAN 2.5 MG TABLET PO SCH ×2 (09:48→21:29)
[2021-06-12] MEDS: AMIODARONE 200 MG TABLET PO SCH (09:48)
[2021-06-12] MEDS: ASCORBIC ACID 500 MG TABLET PO SCH ×2 (09:48→21:29)
[2021-06-12] MEDS: POLYETHYLENE GLYCOL POWDER 17 GM PACK PO SCH (09:52)
[2021-06-12] MEDS: DOCUSATE SODIUM 100 MG CAPSULE PO SCH ×2 (09:53→21:29)
[2021-06-12] MEDS: DOXYCYCLINE HYCLATE 100 MG CAPSULE PO SCH (11:54)
[2021-06-12 14:56] LABS: Bacteria,Urine Occasional /HPF (Few); Bilirubin,Urine Negative (Negative); Blood, Urine Negative (Negative); Glucose,Urine (UA) Negative (Negative); Hyaline Casts,Urine 5 /LPF (0-3); Ketones,Urine Negative (Negative); Mucus,Urine Occasional /LPF (Occasional); Nitrite,Urine Negative (Negative); Protein,Urine Negative; RBC,Urine 1 /HPF (0-4); Urine Appearance CLEAR (Clear); Urine Color Yellow (Yellow); Urine Specific Gravity 1.018 (1.001-1.035); Urine Urobilinogen < 2.0 EU/DL (0.2-1.0)
[2021-06-12] MEDS ORDERED: PIPERACILLIN/TAZOBACTAM 3,375 MG in SODIUM CHLORIDE 0.9% 100 ML IV SCH (15:30)
[2021-06-12] MEDS: SUCRALFATE 1 GM TABLET PO SCH (16:15)
[2021-06-12] MEDS: PIPERACILLIN/TAZOBACTAM 3,375 MG in SODIUM CHLORIDE 0.9% 100 ML IV SCH (18:02)
[2021-06-12] MEDS: SODIUM CHLORIDE 0.9% 1,000 ML IV SCH (21:28)
[2021-06-12] MEDS: ATORVASTATIN 40 MG TABLET PO SCH (21:29)
[2021-06-12] MEDS: ONDANSETRON 4 MG/2 ML VIAL IV PRN (22:50)
[2021-06-13] MEDS: ALBUTEROL/IPRATROPIUM 3 ML NEB RESP TX SCH ×4 (01:49→19:11)
[2021-06-13] MEDS: PIPERACILLIN/TAZOBACTAM 3,375 MG in SODIUM CHLORIDE 0.9% 100 ML IV SCH ×2 (05:12→16:25)
[2021-06-13] MEDS: BUDESONIDE/FORMOTEROL 160-4.5 INHALER 6 GM INH SCH (05:13)
[2021-06-13] MEDS: SODIUM CHLORIDE 0.9% 1,000 ML IV SCH ×2 (05:42→18:15)
[2021-06-13] MEDS: SUCRALFATE 1 GM TABLET PO SCH ×2 (06:36→16:25)
[2021-06-13 07:14] LABS: Calcium 8.5 MG/DL (8.5-10.1); Osmolality,Calculated 285.1 MOS/KG (273-304); Potassium 4.5 MMOL/L (3.5-5.1)
[2021-06-13 07:19] LABS: Basophils % 0.1 % (0.0-0.8); Hematocrit 42.2 VOL% (42.0-52.0); Immature Granulocytes % 0.7 %; Immature Granulocytes Absolute 0.09 #; Lymphocytes # 0.4 10*3/uL (1.4-4.0); Lymphocytes % 3.4 % (21.2-54.2); Mean Corpuscular HGB Conc 30.8 GM/DL (32-36); Mean Corpuscular Volume 87.6 FL (87-102); Mean Platelet Volume 11.1 FL (9.6-12.0); Monocytes % 7.4 % (1.7-12.7); Neutrophils % 88.4 % (38.7-73.9); Platelet Count 210 T/CUMM (130-400); Red Blood Count 4.82 MC/CUMM (3.8-5.5); Red Cell Distribution Width 17.9 % (9.3-17.3); White Blood Count 12.2 T/CUMM (4-12)
[2021-06-13 07:32] LABS: Lymphocytes 8 % (20-55); Segmented Neutrophils 87 % (50-85); Total Cells Counted 100
[2021-06-13 07:33] LABS: Hypochromasia 1+; Microcytosis 1+; Ovalocytes Few
[2021-06-13] MEDS ORDERED: SODIUM PHOSPHATE ENEMA 133 ML BOTTLE RECTAL ONE (10:20)
[2021-06-13] MEDS: POLYETHYLENE GLYCOL POWDER 17 GM PACK PO SCH ×2 (11:29→12:39)
[2021-06-13] MEDS: DOCUSATE SODIUM 100 MG CAPSULE PO SCH ×3 (11:29→21:20)
[2021-06-13] MEDS: ASCORBIC ACID 500 MG TABLET PO SCH ×2 (12:38→21:20)
[2021-06-13] MEDS: APIXABAN 2.5 MG TABLET PO SCH ×2 (12:38→21:21)
[2021-06-13] MEDS: CLOPIDOGREL 75 MG TABLET PO SCH (12:39)
[2021-06-13] MEDS: carvediloL 3.125 MG TABLET PO SCH ×2 (12:40→21:20)
[2021-06-13] MEDS: AMIODARONE 200 MG TABLET PO SCH (12:43)
[2021-06-13] MEDS: ATORVASTATIN 40 MG TABLET PO SCH (21:20)
[2021-06-14] MEDS: ALBUTEROL/IPRATROPIUM 3 ML NEB RESP TX SCH ×4 (01:00→21:00)
[2021-06-14] MEDS: PIPERACILLIN/TAZOBACTAM 3,375 MG in SODIUM CHLORIDE 0.9% 100 ML IV SCH ×2 (05:33→17:09)
[2021-06-14 06:28] LABS: Eosinophils # 0.1 10*3/uL (0.0-0.87); Eosinophils % 0.7 % (0.00-10.9); Hemoglobin 12.3 GM/DL (14.0-18.0); Immature Granulocytes % 0.7 %; Immature Granulocytes Absolute 0.07 #; Lymphocytes # 0.6 10*3/uL (1.4-4.0); Lymphocytes % 5.5 % (21.2-54.2); Mean Corpuscular HGB Conc 30.8 GM/DL (32-36); Mean Corpuscular Volume 86.2 FL (87-102); Mean Platelet Volume 11.5 FL (9.6-12.0); Monocytes % 6.7 % (1.7-12.7); Neutrophils % 86.4 % (38.7-73.9); Platelet Count 245 T/CUMM (130-400); Red Blood Count 4.64 MC/CUMM (3.8-5.5); Red Cell Distribution Width 17.5 % (9.3-17.3); White Blood Count 10.6 T/CUMM (4-12)
[2021-06-14 06:38] LABS: Calcium 8.6 MG/DL (8.5-10.1); Osmolality,Calculated 282.8 MOS/KG (273-304); Potassium 4.1 MMOL/L (3.5-5.1)
[2021-06-14] MEDS ORDERED: MAGNESIUM SULF RIDER 2 GM/50 ML PREMIX IV ONE (08:25)
[2021-06-14] MEDS: ASCORBIC ACID 500 MG TABLET PO SCH ×2 (09:11→21:18)
[2021-06-14] MEDS: POLYETHYLENE GLYCOL POWDER 17 GM PACK PO SCH (09:11)
[2021-06-14] MEDS: AMIODARONE 200 MG TABLET PO SCH (09:12)
[2021-06-14] MEDS: carvediloL 3.125 MG TABLET PO SCH ×2 (09:12→21:18)
[2021-06-14] MEDS: CLOPIDOGREL 75 MG TABLET PO SCH (09:12)
[2021-06-14] MEDS: SUCRALFATE 1 GM TABLET PO SCH ×2 (09:12→17:09)
[2021-06-14] MEDS: DOCUSATE SODIUM 100 MG CAPSULE PO SCH ×2 (09:12→21:18)
[2021-06-14] MEDS: BUDESONIDE/FORMOTEROL 160-4.5 INHALER 6 GM INH SCH ×3 (09:14→17:13)
[2021-06-14] MEDS: APIXABAN 2.5 MG TABLET PO SCH ×2 (09:14→21:18)
[2021-06-14] MEDS: SODIUM CHLORIDE 0.9% 1,000 ML IV SCH (14:55)
[2021-06-14] MEDS: ATORVASTATIN 40 MG TABLET PO SCH (21:18)
[2021-06-15] MEDS: ALBUTEROL/IPRATROPIUM 3 ML NEB RESP TX SCH ×3 (01:50→13:12)
[2021-06-15] MEDS: PIPERACILLIN/TAZOBACTAM 3,375 MG in SODIUM CHLORIDE 0.9% 100 ML IV SCH (04:59)
[2021-06-15] MEDS: BUDESONIDE/FORMOTEROL 160-4.5 INHALER 6 GM INH SCH (05:00)
[2021-06-15] MEDS ORDERED: SODIUM PHOSPHATE ENEMA 133 ML BOTTLE RECTAL ONE (07:55)
[2021-06-15] MEDS ORDERED: POLYETHYLENE GLYCOL POWDER 17 GM PACK PO SCH (09:00)
[2021-06-15] MEDS: SUCRALFATE 1 GM TABLET PO SCH (09:19)
[2021-06-15] MEDS: ASCORBIC ACID 500 MG TABLET PO SCH (09:19)
[2021-06-15] MEDS: carvediloL 3.125 MG TABLET PO SCH (09:19)
[2021-06-15] MEDS: APIXABAN 2.5 MG TABLET PO SCH (09:19)
[2021-06-15] MEDS: CLOPIDOGREL 75 MG TABLET PO SCH (09:19)
[2021-06-15] MEDS: AMIODARONE 200 MG TABLET PO SCH (09:19)
[2021-06-15 09:55] LABS: Calcium 8.6 MG/DL (8.5-10.1); Osmolality,Calculated 289.3 MOS/KG (273-304); Potassium 4.1 MMOL/L (3.5-5.1)
[2021-06-15] MEDS: DOCUSATE SODIUM 100 MG CAPSULE PO SCH (10:28)
[2021-06-15 12:48] VITALS: BP 132/76
== END 2021-06-15 15:00 | disposition home or self-care (01) | DRG 291 ==
LOC: N.ED 08:21 → N.TELEN 08:45 → N.EDINP 10:24 → SUATTDRO 10:24 → N.TELEN 15:57
PROVIDERS: ADMIT Internal Medicine; ATTEND Internal Medicine